=== PATIENT | female | born 1940 | race Caucasian/White ===

== ENCOUNTER → 2016-12-16 | Day surgery (SDC) | payer OTHER ==
[~2016-12-16] MED LIST: ACETAMINOPHEN/HYDROcodone 325 MG/5 MG TAB ONE; AMLO10TA2 PO; ASPI1TAB69 PO; ATOR1TAB18 PO; BUPIVACAINE/EPINEPHRINE 0.5% 50 ML VIAL ONE; GABA100C4 PO; IOHEXOL 180 MG/ML 20 ML VIAL (for RAD DIAG) OTHER ONE; KETOROLAC TROMETHAMINE 30 MG/ML (IVP) VIAL IV PUSH ONE; LACTATED RINGER'S 1000 ML INJ 1,000 ML ONE; LIDOCAINE 1%/EPINEPHrine 1:100,000 SOLN 20 ML VIAL ONE; METO25TA3 PO; MIDAZOLAM HCL 2 MG/2 ML VIAL ONE; MULTTAB67 PO; PLAV75TA29 PO; PROPOFOL 200 MG/20 ML AMP IV ONE; SERT25TA83 PO; ceFAZolin 2 GM PREMIX 50 ML ONE
--- NOTE | 2016-12-16 14:32 | TN ---
cc: VERÓNICA PERERA M.D. DATE OF SURGERY: 12/16/2016 PREOPERATIVE DIAGNOSIS Compression fracture L4, acute. POSTOPERATIVE DIAGNOSIS Compression fracture L4, acute. PROCEDURE Kyphoplasty of L4 and placement of bone cement spacer. SURGEON Verónica Perera ANESTHESIA TIVA. ESTIMATED BLOOD LOSS Minimal. INDICATION This patient is a 76-year-old female with significant low back pain. The patient has a history of having fallen approximately six weeks ago. She had been under the care of a neurologist for a stroke and had some problems with left side weakness of her body. The patient noticed severe increasing back pain on top of preexisting chronic back pain. She was taking medication for this. She followed with a neurologist. An MRI scan of the lumbar spine was ordered. A recent L4 fracture was noted and I was asked to see the patient in consultation regarding the same. The patient prior to her fall had been using a cane but recently now using a walker because of increasing pain and weakness of her legs. DETAILS OF PROCEDURE The patient was brought to the operating room, given limited sedation and rolled to a prone position. All pressure points were protected. The back was scrubbed with alcohol followed by Hibiclens followed by ChloraPrep and draped sterilely. Antibiotics were given within a one hour time window and a time-out was done. A single balloon approach from the left side was utilized. Local anesthesia was utilized. A small incision was made and an awl placed down through the pedicle and into the vertebral body from the left side. A 20 mm Kyphon balloon was placed centrally and inflated. Overall we had good correction. On the back table methyl methacrylate was mixed and after approximately 11 minutes was injected. We had no extravasation. The cement was allowed to harden. The tubes were removed. Intraoperative x-rays were obtained. The patient's wound was irrigated, anesthetized and closed with 4-0 Vicryl followed by Dermabond. The patient was awakened and taken to the recovery room in satisfactory condition. MD SONIA Skelton/TYLER /1:53 PM /2:21 PM
== END | disposition home or self-care (01) ==
LOC: ESDC 11:41
PROVIDERS: ATTEND Orthopaedic Surgery Orthopaedic Surgery of the Spine
DX: S32.040A Wedge compression fracture of fourth lumbar vertebra, initial encounter for closed fracture (principal); E11.9 Type 2 diabetes mellitus without complications; Z79.01 Long term (current) use of anticoagulants; Z91.81 History of falling
CPT/HCPCS: 01936; 22514; 72100; 82948; J0690; J1885; J2250; J3010; J7120; Q9965

== ENCOUNTER 2017-01-27 15:30 | Observation (INO) | payer OTHER ==
[~2017-01-27] VITALS: Ht 165.1 cm; Wt 96.7 kg
[~2017-01-27 15:30] MED LIST changes: -ACETAMINOPHEN/HYDROcodone 325 MG/5 MG TAB ONE; -BUPIVACAINE/EPINEPHRINE 0.5% 50 ML VIAL ONE; -IOHEXOL 180 MG/ML 20 ML VIAL (for RAD DIAG) OTHER ONE; -KETOROLAC TROMETHAMINE 30 MG/ML (IVP) VIAL IV PUSH ONE; -LACTATED RINGER'S 1000 ML INJ 1,000 ML ONE; -LIDOCAINE 1%/EPINEPHrine 1:100,000 SOLN 20 ML VIAL ONE; -MIDAZOLAM HCL 2 MG/2 ML VIAL ONE; -PROPOFOL 200 MG/20 ML AMP IV ONE; -ceFAZolin 2 GM PREMIX 50 ML ONE
[2017-01-27 15:33] VITALS: BP 196/100; PULSE 77; RESP 20; TEMP 98.9; O2SAT 95
[2017-01-27 16:07] VITALS: BP 173/85; PULSE 74; RESP 18; TEMP 98.9; O2SAT 97
[2017-01-27] MEDS ORDERED: SODIUM CHLORIDE 0.9% FLUSH 10 ML FLUSH IVF PRN (16:15)
--- NOTE | 2017-01-27 16:23 | PD ---
HPI Chief Complaint: Neuro Symptoms/ Deficits Time Seen by Provider: 15:57 Travel History International Travel<30 days: No Contact w/Intl Traveler<30days: No Traveled to known affect area: No History of Present Illness HPI The patient is a 76-year-old female who presents to the emergency department via private vehicle for dysarthria and weakness. The daughter states the patient was normal yesterday, however, when she came home today after work to check on her mother she noted that her mother had a change in speech. The daughter states the patient has mild dysarthria and has difficulty finding words at certain times. The patient does have a previous history of CVA with residual left-sided weakness. The patient denies any focal weakness of the arms or legs that is changed from the past, does note some generalized tiredness with her dysarthria. The patient does take Plavix on a daily basis. The patient denies any headache, chest pain, shortness breath, nausea, vomiting , or abdominal pain. Symptoms are moderate, possibly exacerbated by underlying CVA, and there are no acute alleviating factors. The patient's primary physician is Dr. Leone. [facility] Past Medical History Hx Anticoagulant Therapy: Yes (PLAVIX) Arthritis: Yes (bilateral hands) Asthma: No Autoimmune Disease: No Anxiety: Yes (Has been on medication in the past, but was not currently on any medication) Depression: Yes (PATIENT STATES SHE BATTLED WITH IT FOR A WHILE BUT IS NO LONGER DEPRESSED) Heart Rhythm Problems: No Cancer: No Cardiovascular Problems: Yes (HTN) High Cholesterol: Yes Chemotherapy: No Chest Pain: No Congestive Heart Failure: No COPD: No Cerebrovascular Accident: Yes (2016) Diabetes: Yes Patient Takes Glucophage: Yes Diminished Hearing: No Endocrine: Yes (DM) Gastrointestinal Disorders: Yes (GERD) GERD: Yes Genitourinary: Yes Headaches: Yes (allergies with sinus headaches often) Hepatitis: No Heparin Induced Thrombocytopen: No Hypertension: Yes Immune Disorder: No Implanted Vascular Access Dvce: No Kidney Stones: Yes (HX OF) Musculoskeletal: Yes Neurologic: Yes (Left side stroke in 2010 with mild right sided deficits) Psychiatric: Yes Reproductive: No Respiratory: Yes Migraines: No Radiation Therapy: No Renal Failure: No Seizures: No Sickle Cell Disease: No Sleep Apnea: Yes Thyroid Disease: No Ulcer: Yes (hx stomach ulcers) Tetanus Vaccination: Unknown ?: Not Menopausal: Yes Past Surgical History Abdominal Surgery: No AICD: No Arteriovenous Shunt: No Cardiac Surgery: No Ear Surgery: No Endocrine Surgery: Yes (Diabetes) Eye Surgery: No Genitourinary Surgery: Yes (BLADDER REATTATCHMENT) Gynecologic Surgery: No Insulin Pump: No Joint Replacement: No Neurologic Surgery: Yes (spinal sx L4 for compression fx) Oral Surgery: No Pacemaker: No Thoracic Surgery: No Other Surgery: Yes (BLADDER REATTATCHMENT, LUMP TAKEN OFF OF NECK) Social History Alcohol Use: No Tobacco Use: No Substance Use: No Allergies-Medications (Allergen,Severity, Reaction): Coded Allergies: lisinopril (Unverified Allergy, Severe, 01/27/17) sulfamethoxazole (Unverified Allergy, Severe, 01/27/17) trimethoprim (Unverified Allergy, Severe, 01/27/17) valsartan (Unverified Allergy, Severe, 01/27/17) Reported Meds & Prescriptions Reported Meds & Active Scripts Active Reported Meclizine (Meclizine HCl) 25 Mg Tab 25 Mg PO DIRECTED PRN Hydrocodone-Acetaminophen 7.5-325 mg Tab 1 Tab PO Q4H PRN Aspirin 81 Mg Chew 81 Mg CHEW HS Ropinirole 0.25 Mg Tab 0.25 Mg PO HS Gabapentin 300 Mg Cap 300 Mg PO BID Ditropan (Oxybutynin Chloride) 5 Mg Tab 5 Mg PO Q12HR Metformin (Metformin HCl) 500 Mg Tab 500 Mg PO BIDPC With meals Cetirizine (Cetirizine HCl) 10 Mg Tab 10 Mg PO DAILY Laxative (Sennosides) 25 Mg Tab 25 Mg PO HS Omeprazole 20 Mg Tab 20 Mg PO DAILY Atorvastatin (Atorvastatin Calcium) 80 Mg Tab 80 Mg PO HS Plavix (Clopidogrel Bisulfate) 75 Mg Tab 75 Mg PO DAILY Metoprolol Tartrate 25 Mg Tab 12.5 Mg PO BID Multiple Vitamin 1 Tab 1 Tab PO DAILY Sertraline (Sertraline HCl) 25 Mg Tab 25 Mg PO DAILY Review of Systems Except as stated in HPI: all other systems reviewed are Neg HENT: No: Lightheadedness Cardiovascular: No: Chest Pain or Discomfort Respiratory: No: Shortness of Breath Gastrointestinal: No: Nausea, Vomiting, Abdominal Pain Neurologic: Positive: Weakness, Slurred Speech, No: Headache, Change in Mentation, Paresthesia, Sensory Disturbance Physical Exam Narrative GENERAL: Awake, alert, pleasant 76-year-old female who appears her stated age and is in no acute respiratory distress. SKIN: Focused skin assessment warm/dry. HEAD: Atraumatic. Normocephalic. EYES: Pupils equal and round. No scleral icterus. No injection or drainage. ENT: No nasal bleeding or discharge. Mucous membranes pink and moist. NECK: Trachea midline. No JVD. CARDIOVASCULAR: Regular rate and rhythm. No murmur appreciated. RESPIRATORY: No accessory muscle use. Clear to auscultation. Breath sounds equal bilaterally. GASTROINTESTINAL: Abdomen soft, non-tender, nondistended. MUSCULOSKELETAL: No obvious deformities. No clubbing. No cyanosis. No edema. NEUROLOGICAL: Awake and alert. No obvious cranial nerve deficits. No drift of the arms or legs. Mild weakness of the left upper extremity with extension of the elbow and flexion of the elbow when compared to the right. Plantar flexion is 4+ on the left and 5+5 on the right. Sensation is intact and symmetric on the face, arms, and legs. Finger to nose is normal. [id number] is normal. Mild dysarthria, however, speech is understandable. PSYCHIATRIC: Appropriate mood and affect; insight and judgment normal. Data Data Last Documented VS Vital Signs Date Time Temp Pulse Resp B/P (MAP) Pulse Ox O2 Delivery O2 Flow Rate FiO2 01/27/17 16:07 98.9 74 18 173/85 (114) 97 Room Air Orders Orders Electrocardiogram (01/27/17 16:04) Prothrombin Time / Inr (Pt) (01/27/17 16:04) Act Partial Throm Time (Ptt) (01/27/17 16:04) Complete Blood Count With Diff (01/27/17 16:04) Comprehensive Metabolic Panel (01/27/17 16:04) Creatine Kinase (Cpk) (01/27/17 16:04) Troponin I (01/27/17 16:04) Ct Brain W/O Iv Contrast(Rout) (01/27/17 16:04) Ecg Monitoring (01/27/17 16:04) Iv Access Insert/Monitor (01/27/17 16:04) Oximetry (01/27/17 16:04) Sodium Chloride 0.9% Flush (Ns Flush) (01/27/17 16:15) Aspirin (Aspirin) (01/27/17 18:15) Admit Order (Ed Use Only) (01/27/17 18:15) Labs Laboratory Tests Test 01/27/17 16:15 White Blood Count 6.4 TH/MM3 Red Blood Count 3.92 MIL/MM3 Hemoglobin 12.7 GM/DL Hematocrit 38.0 % Mean Corpuscular Volume 96.7 FL Mean Corpuscular Hemoglobin 32.4 PG Mean Corpuscular Hemoglobin Concent 33.5 % Red Cell Distribution Width 13.3 % Platelet Count 265 TH/MM3 Mean Platelet Volume 8.4 FL Neutrophils (%) (Auto) 64.1 % Lymphocytes (%) (Auto) 17.4 % Monocytes (%) (Auto) 8.4 % Eosinophils (%) (Auto) 8.8 % Basophils (%) (Auto) 1.3 % Neutrophils # (Auto) 4.1 TH/MM3 Lymphocytes # (Auto) 1.1 TH/MM3 Monocytes # (Auto) 0.5 TH/MM3 Eosinophils # (Auto) 0.6 TH/MM3 Basophils # (Auto) 0.1 TH/MM3 CBC Comment DIFF FINAL Differential Comment Prothrombin Time 10.3 SEC Prothromb Time International Ratio 0.9 RATIO Activated Partial Thromboplast Time 23.6 SEC Blood Urea Nitrogen 23 MG/DL Creatinine 0.98 MG/DL Random Glucose 118 MG/DL Total Protein 7.1 GM/DL Albumin 3.5 GM/DL Calcium Level 9.1 MG/DL Alkaline Phosphatase 90 U/L Aspartate Amino Transf (AST/SGOT) 25 U/L Alanine Aminotransferase (ALT/SGPT) 23 U/L Total Bilirubin 0.5 MG/DL Sodium Level 136 MEQ/L Potassium Level 4.0 MEQ/L Chloride Level 103 MEQ/L Carbon Dioxide Level 24.4 MEQ/L Anion Gap 9 MEQ/L Estimat Glomerular Filtration Rate 55 ML/MIN Total Creatine Kinase 128 U/L Troponin I LESS THAN 0.02 NG/ML MDM Medical Decision Making Medical Screen Exam Complete: Yes Emergency Medical Condition: Yes Medical Record Reviewed: Yes Interpretation(s) EKG reveals normal sinus rhythm with a rate of 69. Left anterior fascicular block. Left axis deviation. Laboratory Tests Test 01/27/17 16:15 White Blood Count 6.4 TH/MM3 Red Blood Count 3.92 MIL/MM3 Hemoglobin 12.7 GM/DL Hematocrit 38.0 % Mean Corpuscular Volume 96.7 FL Mean Corpuscular Hemoglobin 32.4 PG Mean Corpuscular Hemoglobin Concent 33.5 % Red Cell Distribution Width 13.3 % Platelet Count 265 TH/MM3 Mean Platelet Volume 8.4 FL Neutrophils (%) (Auto) 64.1 % Lymphocytes (%) (Auto) 17.4 % Monocytes (%) (Auto) 8.4 % Eosinophils (%) (Auto) 8.8 % Basophils (%) (Auto) 1.3 % Neutrophils # (Auto) 4.1 TH/MM3 Lymphocytes # (Auto) 1.1 TH/MM3 Monocytes # (Auto) 0.5 TH/MM3 Eosinophils # (Auto) 0.6 TH/MM3 Basophils # (Auto) 0.1 TH/MM3 CBC Comment DIFF FINAL Differential Comment Prothrombin Time 10.3 SEC Prothromb Time International Ratio 0.9 RATIO Activated Partial Thromboplast Time 23.6 SEC Blood Urea Nitrogen 23 MG/DL Creatinine 0.98 MG/DL Random Glucose 118 MG/DL Total Protein 7.1 GM/DL Albumin 3.5 GM/DL Calcium Level 9.1 MG/DL Alkaline Phosphatase 90 U/L Aspartate Amino Transf (AST/SGOT) 25 U/L Alanine Aminotransferase (ALT/SGPT) 23 U/L Total Bilirubin 0.5 MG/DL Sodium Level 136 MEQ/L Potassium Level 4.0 MEQ/L Chloride Level 103 MEQ/L Carbon Dioxide Level 24.4 MEQ/L Anion Gap 9 MEQ/L Estimat Glomerular Filtration Rate 55 ML/MIN Total Creatine Kinase 128 U/L Troponin I LESS THAN 0.02 NG/ML CT reveals old infarcts, no acute hemorrhage. Differential Diagnosis Differential diagnosis includes CVA, TIA, intracranial hemorrhage, UTI, delirium , hypoglycemia, hyponatremia. Narrative Course IV was established, labs are drawn and sent, and the patient was placed on cardiac telemetry monitoring and continuous pulse oximetry monitoring. EKG was ordered and interpreted. Stat CT of the brain was obtained. Labs are unremarkable. CT of the brain was unremarkable except for old infarcts, no acute hemorrhage. Therefore, the patient was administered aspirin 325 mg orally. Patient does have a previous history of CVA, last one was approximately 1718 months ago, August 2015 according to the daughter. The patient has new onset dysarthria, unsure if this is secondary to acute CVA/TIA. Therefore, patient will be 23 hour observation. The patient was reassessed at 6:15 PM, her speech had significantly improved. It appears the patient had a TIA or transient neurologic deficit which has improved. It has been over 1-1/2 years since the patient had an ultrasound of the carotids and echocardiogram, she may benefit from carotid ultrasound and echocardiogram. The patient was administered an aspirin orally. Patient has [employer], therefore, [facility] were paged for 23 hour observation. Physician Communication Physician Communication The patient has [employer], therefore, [facility] were paged for 23 hour observation. I discussion with Dr. Suarez who agrees with 23 hour observation. Diagnosis Primary Impression: Dysarthria Additional Impression: TIA (transient ischemic attack) Qualified Codes: G45.9 - Transient cerebral ischemic attack, unspecified Admitting Information Admitting Physician Requests: Observation Condition: Stable Sherif Arce MD Jan 27, 2017 16:23
[2017-01-27] MEDS ORDERED: OXYB5TAB10 PO (17:01)
[2017-01-27] MEDS ORDERED: GABA300C5 PO (17:01)
[2017-01-27] MEDS ORDERED: OMEP20TA PO (17:01)
[2017-01-27] MEDS ORDERED: MECL-62 PO (17:01)
[2017-01-27] MEDS ORDERED: METF500T PO (17:01)
[2017-01-27] MEDS ORDERED: HYDR-3580 PO (17:01)
[2017-01-27] MEDS ORDERED: ASPI81CH CHEW (17:01)
[2017-01-27] MEDS ORDERED: [UNRECOGNIZED DRUG - CODE] PO (17:01)
[2017-01-27] MEDS ORDERED: ROPI0.25 PO (17:01)
[2017-01-27] MEDS ORDERED: CETI10 PO (17:01)
[2017-01-27 17:03] LABS: AUTOMATED NEUTROPHIL # 4.1 TH/MM3 (1.8-7.7); BASOPHIL # 0.1 TH/MM3 (0-0.2); BASOPHIL % 1.3 % (0.0-2.0); EOSINOPHIL # 0.6 TH/MM3 (0-0.4); EOSINOPHIL % 8.8 % (0.0-4.0); HEMO FLAGS DIFF FINAL; LYMPH % 17.4 % (9.0-44.0); LYMPHOCYTE # 1.1 TH/MM3 (1.0-4.8); MEAN CELL VOLUME 96.7 FL (80.0-100.0); MEAN CORPUSCULAR HEMOGLOBIN 32.4 PG (27.0-34.0); MEAN CORPUSCULAR HGB CONC 33.5 % (32.0-36.0); MONO % 8.4 % (0.0-8.0); NEUT % 64.1 % (16.0-70.0); PLATELET COUNT 265 TH/MM3 (150-450); RED BLOOD COUNT 3.92 MIL/MM3 (4.00-5.30); RED CELL DISTRIBUTION WIDTH 13.3 % (11.6-17.2); WHITE BLOOD COUNT 6.4 TH/MM3 (4.0-11.0)
[2017-01-27 17:22] LABS: ALT (GPT) 23 U/L (10-53)
[2017-01-27 17:24] LABS: APTT (PATIENT) 23.6 SEC (24.3-30.1); INTERNATIONAL NORMALIZED RATIO 0.9 RATIO; PROTHROMBIN TIME - PATIENT 10.3 SEC (9.8-11.6)
[2017-01-27 17:28] LABS: ALKALINE PHOSPHATASE 90 U/L (45-117); ANION GAP 9 MEQ/L (5-15); AST (GOT) 25 U/L (15-37); BICARBONATE 24.4 MEQ/L (21.0-32.0); BLOOD UREA NITROGEN 23 MG/DL (7-18); CHLORIDE 103 MEQ/L (98-107); CREATINE KINASE 128 U/L (26-192); GLOMERULAR FILTRATION RATE 55 ML/MIN (>89); SODIUM (NA) 136 MEQ/L (136-145); TOTAL BILIRUBIN ADULT 0.5 MG/DL (0.2-1.0)
--- NOTE | 2017-01-27 18:07 | RADRPT ---
EXAM DATE/TIME: 01/27/2017 17:25 [facility] COMPARISON: MRI BRAIN W/O CONTRAST, December 06, 2015, 21:45. CT BRAIN W/O CONTRAST, December 06, 2015, 21:02. INDICATIONS : Slurred speech, difficulty ambulating. RADIATION DOSE: 56.81 CTDIvol (mGy) MEDICAL HISTORY : Cerebrovascular disease. Hypertension. Diabetes mellitus type 1. SURGICAL HISTORY : None. ENCOUNTER: Initial ACUITY: 1 day PAIN SCALE: 0/10 LOCATION: cranial TECHNIQUE: Multiple contiguous axial images were obtained of the head. Using automated exposure control and adj ustment of the mA and/or kV according to patient size, radiation dose was kept as low as reasonably a chievable to obtain optimal diagnostic quality images. DICOM format image data is available electro nically for review and comparison. FINDINGS: CEREBRUM: The ventricles are normal for age. No evidence of midline shift, mass lesion, hemorrhage or acute in farction. No extra-axial fluid collections are seen. Old ischemic changes are again seen in the high right frontal and parietal lobes and also the periventricular white matter. There is an old lacunar infarct of the left thalamus, stable. POSTERIOR FOSSA: The cerebellum and brainstem are intact. The 4th ventricle is midline. The cerebellopontine angle i s unremarkable. EXTRACRANIAL: The visualized portion of the orbits is intact. SKULL: The calvaria is intact. No evidence of skull fracture. CONCLUSION: No acute intracranial abnormality. Chronic/old infarcts as above. Abel Robb MD on January 27, 2017 at 18:04 Board Certified Radiologist. This report was verified electronically.
[2017-01-27] MEDS ORDERED: ASPIRIN 325 MG TAB PO ONE (18:15)
[2017-01-27] MEDS ORDERED: NALOXONE HCL 0.4 MG/ML AMP IV PUSH PRN (18:30)
[2017-01-27] MEDS ORDERED: SODIUM CHLORIDE 0.9% FLUSH 10 ML FLUSH IV FLUSH PRN (18:30)
[2017-01-27] MEDS ORDERED: ONDANSETRON HCL 4 MG/2 ML VIAL IVP PRN (18:30)
--- NOTE | 2017-01-27 18:34 | HHI.HP ---
[facility] Service [facility] Primary Care Physician Kamla Leone MD Admission Diagnosis acute dysarthria, history CVA Diagnoses: (1) Dysarthria Diagnosis: Principal (2) TIA (transient ischemic attack) Diagnosis: Principal Travel History International Travel<30 Days: No Contact w/Intl Traveler <30 Da: No Traveled to Known Affected Are: No History of Present Illness Mrs. Whitlock is a 76-year-old female. She is here secondary to dysarthria. Her daughter found her to have dysarthria this morning upon visiting her. She was brought to the hospital. She has since had resolution of her dysarthria. The patient says she feels 100% back to normal regarding her speech. At baseline she has diabetes mellitus type 2 and has a past history of TIAs and CVAs. She is feeling at baseline when seen. She has no headache but does complain that she didn't having headaches intermittently for the past week. No other complaints. Review of Systems Constitutional: DENIES: Fatigue, Fever, Chills, Dizziness, Change in appetite Endocrine: DENIES: Heat/cold intolerance Eyes: DENIES: Blurred vision, Diplopia, Eye inflammation, Eye pain Ears, nose, mouth, throat: DENIES: Tinnitus, Hearing loss, Vertigo Respiratory: DENIES: Apneas, Cough, Wheezing, Hemoptysis, Shortness of breath Cardiovascular: DENIES: Chest pain, Palpitations, Syncope Gastrointestinal: DENIES: Abdominal pain, Black stools, Bloody stools Musculoskeletal: DENIES: Joint pain, Muscle aches, Stiffness Integumentary: DENIES: Abnormal pigmentation, Pruritus, Rash, Nail changes Hematologic/lymphatic: DENIES: Bruising, Lymphadenopathy Immunologic/allergic: DENIES: Eczema, Urticaria Neurologic: COMPLAINS OF: Speech Problems, DENIES: Abnormal gait, Headache, Localized weakness, Paresthesias Psychiatric: DENIES: Anxiety, Confusion, Mood changes, Depression, Hallucinations Past Family Social History Past Medical History Hypertension History of TIAs History of CVA 3 Hyperlipidemia Gastroesophageal reflux disease Depression Diabetes mellitus type 2 Diabetic retinopathy Peripheral neuropathy from diabetes Past Surgical History Latter suspension surgery Neck mass excision Reported Medications Reported Meds & Active Scripts Active Reported Meclizine (Meclizine HCl) 25 Mg Tab 25 Mg PO DIRECTED PRN Hydrocodone-Acetaminophen 7.5-325 mg Tab 1 Tab PO Q4H PRN Aspirin 81 Mg Chew 81 Mg CHEW HS Ropinirole 0.25 Mg Tab 0.25 Mg PO HS Gabapentin 300 Mg Cap 300 Mg PO BID Ditropan (Oxybutynin Chloride) 5 Mg Tab 5 Mg PO Q12HR Metformin (Metformin HCl) 500 Mg Tab 500 Mg PO BIDPC With meals Cetirizine (Cetirizine HCl) 10 Mg Tab 10 Mg PO DAILY Laxative (Sennosides) 25 Mg Tab 25 Mg PO HS Omeprazole 20 Mg Tab 20 Mg PO DAILY Atorvastatin (Atorvastatin Calcium) 80 Mg Tab 80 Mg PO HS Plavix (Clopidogrel Bisulfate) 75 Mg Tab 75 Mg PO DAILY Metoprolol Tartrate 25 Mg Tab 12.5 Mg PO BID Multiple Vitamin 1 Tab 1 Tab PO DAILY Sertraline (Sertraline HCl) 25 Mg Tab 25 Mg PO DAILY Allergies: Coded Allergies: lisinopril (Unverified Allergy, Severe, 01/27/17) sulfamethoxazole (Unverified Allergy, Severe, 01/27/17) trimethoprim (Unverified Allergy, Severe, 01/27/17) valsartan (Unverified Allergy, Severe, 01/27/17) Family History Diabetes mellitus type II and glaucoma in mother Social History No history of smoking No history of alcohol abuse No history of illicit drug abuse Physical Exam Vital Signs Vital Signs Date Time Temp Pulse Resp B/P (MAP) Pulse Ox O2 Delivery O2 Flow Rate FiO2 01/27/17 16:07 98.9 74 18 173/85 (114) 97 Room Air 01/27/17 16:07 74 18 97 Room Air 01/27/17 16:07 98.9 74 18 173/85 (114) 97 Room Air 01/27/17 15:33 98.9 77 20 196/100 (132) 95 Physical Exam GENERAL: NAD, A&Ox3 HEAD: Normocephalic. NECK: Supple, trachea midline. No lymphadenopathy. EYES: No scleral icterus. No injection or drainage. CARDIOVASCULAR: Regular rate and rhythm without murmurs, gallops, or rubs. RESPIRATORY: Breath sounds equal bilaterally. No accessory muscle use. GASTROINTESTINAL: Abdomen soft, non-tender, nondistended. MUSCULOSKELETAL: No cyanosis, or edema. SKIN: Warm and dry. NEURO: No focal neurological deficitis. Laboratory Laboratory Tests Test 01/27/17 16:15 White Blood Count 6.4 Red Blood Count 3.92 Hemoglobin 12.7 Hematocrit 38.0 Mean Corpuscular Volume 96.7 Mean Corpuscular Hemoglobin 32.4 Mean Corpuscular Hemoglobin Concent 33.5 Red Cell Distribution Width 13.3 Platelet Count 265 Mean Platelet Volume 8.4 Neutrophils (%) (Auto) 64.1 Lymphocytes (%) (Auto) 17.4 Monocytes (%) (Auto) 8.4 Eosinophils (%) (Auto) 8.8 Basophils (%) (Auto) 1.3 Neutrophils # (Auto) 4.1 Lymphocytes # (Auto) 1.1 Monocytes # (Auto) 0.5 Eosinophils # (Auto) 0.6 Basophils # (Auto) 0.1 CBC Comment DIFF FINAL Differential Comment Prothrombin Time 10.3 Prothromb Time International Ratio 0.9 Activated Partial Thromboplast Time 23.6 Blood Urea Nitrogen 23 Creatinine 0.98 Random Glucose 118 Total Protein 7.1 Albumin 3.5 Calcium Level 9.1 Alkaline Phosphatase 90 Aspartate Amino Transf (AST/SGOT) 25 Alanine Aminotransferase (ALT/SGPT) 23 Total Bilirubin 0.5 Sodium Level 136 Potassium Level 4.0 Chloride Level 103 Carbon Dioxide Level 24.4 Anion Gap 9 Estimat Glomerular Filtration Rate 55 Total Creatine Kinase 128 Troponin I LESS THAN 0.02 Result Diagram: 01/27/17 1615 01/27/17 1615 Caprini VTE Risk Assessment Caprini VTE Risk Assessment: Mod/High Risk (score >= 2) VTE Pharm Contraindication: High risk for bleeding Caprini Risk Assessment Model Point Value = 1 Point Value = 2 Point Value = 3 Point Value = 5 Age 41-60 Minor surgery BMI > 25 kg/m2 Swollen legs Varicose veins or History of unexplained or recurrent spontaneous Oral contraceptives or hormone replacement Sepsis (< 1 month) Serious lung disease, including pneumonia (< 1 month) Abnormal pulmonary function Acute myocardial infarction Congestive heart failure (< 1 month) History of inflammatory bowel disease Medical patient at bed rest Age 61-74 Arthroscopic surgery Major open surgery (> 45 min) Laparoscopic surgery (> 45 min) Malignancy Confined to bed (> 72 hours) Immobilizing plaster cast Central venous access Age >= 75 History of VTE Family history of VTE Factor V Leiden Prothrombin [id number] Lupus anticoagulant Anticardiolipin antibodies Elevated serum homocysteine Heparin-induced thrombocytopenia Other congenital or acquired thrombophilia Stroke (< 1 month) Elective arthroplasty Hip, pelvis, or leg fracture Acute spinal cord injury (< 1 month) Prophylaxis Regimen Total Risk Factor Score Risk Level Prophylaxis Regimen 0-1 Low Early ambulation 2 Moderate Order ONE of the following: *Sequential Compression Device (SCD) *Heparin 5000 units SQ BID 3-4 Higher Order ONE of the following medications: *Heparin 5000 units SQ TID *Enoxaparin/Lovenox 40 mg SQ daily (WT < 150 kg, CrCl > 30 mL/min) *Enoxaparin/Lovenox 30 mg SQ daily (WT < 150 kg, CrCl > 10-29 mL/min) *Enoxaparin/Lovenox 30 mg SQ BID (WT < 150 kg, CrCl > 30 mL/min) AND/OR *Sequential Compression Device (SCD) 5 or more Highest Order ONE of the following medications: *Heparin 5000 units SQ TID (Preferred with Epidurals) *Enoxaparin/Lovenox 40 mg SQ daily (WT < 150 kg, CrCl > 30 mL/min) *Enoxaparin/Lovenox 30 mg SQ daily (WT < 150 kg, CrCl > 10-29 mL/min) *Enoxaparin/Lovenox 30 mg SQ BID (WT < 150 kg, CrCl > 30 mL/min) AND *Sequential Compression Device (SCD) Assessment and Plan Problem List: (1) TIA (transient ischemic attack) ICD Code: G45.9 - Transient cerebral ischemic attack, unspecified Status: Acute (2) Dysarthria ICD Code: R47.1 - Dysarthria and anarthria Status: Acute Assessment and Plan Assessment and plan 76-year-old female who is admitted secondary to dysarthria, possible TIA versus CVA. Dysarthria History of CVA Is true TIA TIA versus CVA Tendons are now resolved Daily aspirin next line statin Neuro checks Carotid ultrasound study of the neck MRI of brain Monitor for any recurrence of symptoms Hypertension Allow for blood pressure elevations L stroke rule out Follow blood pressures Continue Baseline blood pressure treatments Hyperlipidemia Continue statin Follow fasting lipid profiles in outpatient Gastroesophageal reflux disease No change to baseline treatment Depression No change to baseline treatment Diabetes mellitus type 2 Diabetic retinopathy Peripheral neuropathy from diabetes Follow blood sugars Insulin sliding scale Diabetic diet DVT prophylaxis SCDs Problem Qualifiers (1) TIA (transient ischemic attack): Qualified Codes: G45.9 - Transient cerebral ischemic attack, unspecified Philipp Suarez MD Jan 27, 2017 18:34
[2017-01-27 18:47] VITALS: BP 170/85
[2017-01-27] MEDS ORDERED: PILL SPLITTER OTHER PRN (19:00)
[2017-01-27] MEDS ORDERED: DEXTROSE 50% IN WATER 50 ML VIAL(D50) IV PRN (19:30)
[2017-01-27] MEDS ORDERED: GLUCAGON 1 MG/ML VIAL OTHER PRN (19:30)
[2017-01-27 20:00] VITALS: BP 135/76; PULSE 77; RESP 18; TEMP 98.1; O2SAT 98
[2017-01-27] MEDS: OXYBUTYNIN CHLORIDE 5 MG TAB PO SCH (20:51)
[2017-01-27] MEDS: ASPIRIN 81 MG CHEW TAB CHEW SCH (20:52)
[2017-01-27] MEDS: SENNOSIDES 8.6 MG TAB PO SCH (20:52)
[2017-01-27] MEDS: GABAPENTIN 300 MG CAP PO SCH (20:52)
[2017-01-27] MEDS: ATORVASTATIN 80 MG TAB PO SCH (20:52)
[2017-01-27] MEDS: METOPROLOL TARTRATE 25 MG TAB PO SCH (20:53)
--- NOTE | 2017-01-27 20:55 | EKG ---
Date Performed: 01/27/2017 Time Performed: 16:24:09 PTAGE: 76 years EKG: Sinus rhythm LEFT ANTERIOR FASCICULAR BLOCK ABNORMAL ECG No significant change from prior electrocardiogram. PREVIOUS TRACING : 12/06/2015 21.18 DOCTOR: Bebeto Patel Interpretating Date/Time 01/27/2017 20:54:27
[2017-01-27] MEDS: ACETAMINOPHEN/HYDROcodone 325 MG/7.5 MG TAB PO PRN (20:56)
[2017-01-27] MEDS: SODIUM CHLORIDE 0.9% FLUSH 10 ML FLUSH IV FLUSH SCH (21:00)
--- NOTE | 2017-01-27 21:42 | RADRPT ---
EXAM DATE/TIME: 01/27/2017 21:13 [facility] COMPARISON: CT BRAIN W/O CONTRAST, January 27, 2017, 17:25. MRI BRAIN W/O CONTRAST, September 07, 2015, 10:04. INDICATIONS : TIA. Slurred speech, difficulty ambulating. MEDICAL HISTORY : Cerebrovascular disease. Diabetes mellitus type 2. Hypertension. SURGICAL HISTORY : Bladder. Laminectomy. ENCOUNTER: Subsequent ACUITY: 1 day PAIN SCORE: 3/10 LOCATION: cranial TECHNIQUE: Multiplanar, multisequence MRI of the brain was performed without contrast. FINDINGS: CEREBRUM: The ventricles are normal for age. No evidence of midline shift, mass lesion, hemorrhage or acute in farction. No extraaxial fluid collections are seen. The pituitary gland and suprasellar cistern are normal in configuration. Several old, small cortical/subcortical infarcts are seen in the high right parietal and frontal lobes. There is a 1 cm old lacunar infarct of the left thalamus. WHITE MATTER: No significant signal abnormalities are seen in the white matter. POSTERIOR FOSSA: The cerebellum and brainstem are intact. The 4th ventricle is midline. The cerebellopontine angle is unremarkable. The cerebellar tonsils are normal in position. DIFFUSION IMAGING: No focal areas of restricted diffusion are seen. No evidence of acute infarction. EXTRACRANIAL: The visualized portions of the orbits and paranasal sinuses are unremarkable. CONCLUSION: 1. No acute infarct or other acute intracranial abnormality. 2. Chronic cerebral infarct right high parietal and frontal lobes. 3. Old lacunar infarct of the left thalamus. Abel Robb MD on January 27, 2017 at 21:38 Board Certified Radiologist. This report was verified electronically.
--- NOTE | 2017-01-27 22:55 | RADRPT ---
EXAM DATE/TIME: 01/27/2017 22:07 [facility] COMPARISON: US CAROTID ARTERIES, September 03, 2015, 20:02. INDICATIONS : Syncope. MEDICAL HISTORY : Hypercholesterolemia. Gastroesophageal reflux disease. Hypertension. CVA. Syncope. Ulcer. Hiatal [place]. Kidney stones. Diabetes. Neuropathy. SURGICAL HISTORY : Bladder reattachment surgery. ENCOUNTER: Subsequent ACUITY: 1 day PAIN SCORE: 0/10 LOCATION: Bilateral neck PEAK SYSTOLIC VELOCITIES (cm/sec): ICA/CCA RATIO: Right: 0.8 Left: 1.0 ICA: Right: 56.8 Left: 62.0 CCA: Right: 70.9 Left: 59.6 ECA: Right: 62.0 Left: 63.3 VERTEBRAL: Right: 49.0 antegrade Left: 24.8 antegrade Elevated flow velocities and ICA/CCA ratios have been found to correlate with increased degrees of vessel stenosis, calculated as percentage of diameter relative to a normal segment of distal ICA/CCA FINDINGS: RIGHT CAROTID: Trace plaque of the bulb and proximal ICA. LEFT CAROTID: Trace plaque of the bulb and proximal ICA. VERTEBRAL ARTERIES: Antegrade flow is seen in both vertebral arteries. MISCELLANEOUS: None. CONCLUSION: Minimal atherosclerotic plaque of both carotid bifurcations. No hemodynamically significant narrowing . Abel Robb MD on January 27, 2017 at 22:53 Board Certified Radiologist. This report was verified electronically.
[2017-01-27] MEDS: INSULIN ASPART SUPPLEMENTAL SCALE SQ SCH (23:40)
[2017-01-28] VITALS (8 sets, daily range): BP systolic 132–200; BP diastolic 79–94; PULSE 61–70; RESP 18–20; TEMP 97.5–98.2; O2SAT 94–98
[2017-01-28] MEDS: ACETAMINOPHEN/HYDROcodone 325 MG/7.5 MG TAB PO PRN ×6 (01:16→21:49)
[2017-01-28] MEDS: INSULIN ASPART SUPPLEMENTAL SCALE SQ SCH ×4 (08:00→21:59)
[2017-01-28] MEDS: metFORMIN HCL 500 MG TAB PO SCH ×2 (09:00→17:20)
[2017-01-28] MEDS: SODIUM CHLORIDE 0.9% FLUSH 10 ML FLUSH IV FLUSH SCH ×2 (09:00→21:56)
[2017-01-28] MEDS: cloNIDine HCL 0.1 MG TAB PO PRN (09:00)
[2017-01-28] MEDS: CETIRIZINE HCL 10 MG TAB PO SCH (09:01)
[2017-01-28] MEDS: MULTIVITAMIN TAB PO SCH (09:01)
[2017-01-28] MEDS: SERTRALINE HCL 50 MG TAB PO SCH (09:01)
[2017-01-28] MEDS: GABAPENTIN 300 MG CAP PO SCH ×2 (09:01→21:47)
[2017-01-28] MEDS: METOPROLOL TARTRATE 25 MG TAB PO SCH ×2 (09:01→21:47)
[2017-01-28] MEDS: CLOPIDOGREL 75 MG TAB PO SCH (09:01)
[2017-01-28] MEDS: OXYBUTYNIN CHLORIDE 5 MG TAB PO SCH ×2 (09:01→21:48)
[2017-01-28] MEDS: PANTOPRAZOLE SOD 20 MG DELAYED RELEASE TAB PO SCH (09:01)
[2017-01-28] MEDS ORDERED: METOPROLOL TARTRATE 25 MG TAB PO ONE (09:15)
[2017-01-28] MEDS: MORPHINE SULFATE 4 MG/ML INJ IV PUSH PRN ×2 (10:55→17:20)
[2017-01-28] MEDS ORDERED: NAPROXEN 500 MG TAB PO ONE (11:00)
[2017-01-28 11:30] LABS: AUTOMATED NEUTROPHIL # 3.8 TH/MM3 (1.8-7.7); BASOPHIL # 0.1 TH/MM3 (0-0.2); BASOPHIL % 0.9 % (0.0-2.0); EOSINOPHIL # 0.5 TH/MM3 (0-0.4); EOSINOPHIL % 8.5 % (0.0-4.0); HEMATOCRIT 39.3 % (35.0-46.0); HEMO FLAGS DIFF FINAL; LYMPH % 18.5 % (9.0-44.0); LYMPHOCYTE # 1.1 TH/MM3 (1.0-4.8); MEAN CELL VOLUME 97.9 FL (80.0-100.0); MEAN CORPUSCULAR HEMOGLOBIN 32.5 PG (27.0-34.0); MEAN CORPUSCULAR HGB CONC 33.2 % (32.0-36.0); MONO % 8.9 % (0.0-8.0); NEUT % 63.2 % (16.0-70.0); PLATELET COUNT 235 TH/MM3 (150-450); RED BLOOD COUNT 4.01 MIL/MM3 (4.00-5.30); RED CELL DISTRIBUTION WIDTH 13.5 % (11.6-17.2)
[2017-01-28 11:56] LABS: ALT (GPT) 23 U/L (10-53); ANION GAP 8 MEQ/L (5-15); AST (GOT) 19 U/L (15-37); BICARBONATE 26.4 MEQ/L (21.0-32.0); BLOOD UREA NITROGEN 19 MG/DL (7-18); CHLORIDE 105 MEQ/L (98-107); GLOMERULAR FILTRATION RATE 71 ML/MIN (>89); POTASSIUM 3.7 MEQ/L (3.5-5.1); SODIUM (NA) 139 MEQ/L (136-145)
[2017-01-28 11:58] LABS: ALKALINE PHOSPHATASE 86 U/L (45-117); TOTAL BILIRUBIN ADULT 0.6 MG/DL (0.2-1.0)
--- NOTE | 2017-01-28 17:01 | HHI.PR ---
Subjective Remarks No further dysarthria. Workup included MRI of brain, CT of head, and carotid ultrasounds. No findings to suggest CVA. TIA as a possible cause. Alternate causes could be related to her use of narcotics as an outpatient. Today the patient complains of diffuse body pains. She said assessment occurring for several days. She's having difficulty ambulating related to this. Physical therapy assessment is done and recommends PT at home. Discharge offered to patient and right now she feels she's not able to function at home. Anti- inflammatories were discussed. Objective Vital Signs Date Time Temp Pulse Resp B/P (MAP) Pulse Ox O2 Delivery O2 Flow Rate FiO2 01/28/17 16:19 98.1 63 20 132/82 (99) 98 01/28/17 16:00 69 01/28/17 13:00 62 01/28/17 11:49 97.6 66 20 187/79 (115) 96 01/28/17 08:04 97.6 66 20 200/91 (127) 97 01/28/17 08:04 64 01/28/17 04:00 97.9 61 18 165/80 (108) 98 01/28/17 00:00 98.2 70 18 138/94 (109) 95 01/28/17 00:00 98.2 70 18 187/82 (117) 94 01/27/17 20:00 98.1 77 18 135/76 (95) 98 01/27/17 18:47 81 20 170/85 (113) 96 I/O 01/27/17 01/27/17 01/27/17 01/28/17 01/28/17 01/28/17 07:00 15:00 23:00 07:00 15:00 23:00 Intake Total 720 ml Output Total 500 ml Balance -500 ml 720 ml Intake Oral 720 ml Output Urine Total 500 ml # Voids 1 2 4 Result Diagram: 01/28/1792901/28/1730 Objective Remarks GENERAL: NAD, A&Ox3 HEAD: Normocephalic. NECK: Supple, trachea midline. No lymphadenopathy. EYES: No scleral icterus. No injection or drainage. CARDIOVASCULAR: Regular rate and rhythm without murmurs, gallops, or rubs. RESPIRATORY: Breath sounds equal bilaterally. No accessory muscle use. GASTROINTESTINAL: Abdomen soft, non-tender, nondistended. MUSCULOSKELETAL: No cyanosis, or edema. SKIN: Warm and dry. NEURO: No focal neurological deficitis. A/P Problem List: (1) Arthralgia ICD Code: M25.50 - Pain in unspecified joint (2) Dysarthria ICD Code: R47.1 - Dysarthria and anarthria Status: Acute (3) TIA (transient ischemic attack) ICD Code: G45.9 - Transient cerebral ischemic attack, unspecified Status: Acute Assessment and Plan Assessment and plan 76-year-old female who is admitted secondary to dysarthria, possible TIA versus CVA. Complaints of arthralgias today. Naprosyn started as a treatment. Morphine provided as a breakthrough treatment. Continue home use of [place]. Patient will need physical therapy at discharge. Dysarthria History of CVA History of TIA Most likely TIA based on workup Carotid ultrasound negative MRI of brain shows no evidence of acute CVA CT shows no acute abnormalities Continue daily aspirin Arthralgias Continue baseline pain treatments As needed IV morphine for breakthrough pain Start NSAID Continue physical therapy Etiology is most likely viral Viral etiology could be contributory to TIA Hypertension Allow for blood pressure elevations L stroke rule out Follow blood pressures Continue Baseline blood pressure treatments Hyperlipidemia Continue statin Follow fasting lipid profiles in outpatient Gastroesophageal reflux disease No change to baseline treatment Depression No change to baseline treatment Diabetes mellitus type 2 Diabetic retinopathy Peripheral neuropathy from diabetes Follow blood sugars Insulin sliding scale Diabetic diet DVT prophylaxis SCDs Problem Qualifiers (1) TIA (transient ischemic attack): Qualified Codes: G45.9 - Transient cerebral ischemic attack, unspecified Philipp Suarez MD Jan 28, 2017 17:01
[2017-01-28] MEDS: ATORVASTATIN 80 MG TAB PO SCH (21:47)
[2017-01-28] MEDS: ASPIRIN 81 MG CHEW TAB CHEW SCH (21:47)
[2017-01-28] MEDS: NAPROXEN 500 MG TAB PO SCH (21:48)
[2017-01-28] MEDS: SENNOSIDES 8.6 MG TAB PO SCH (21:48)
[2017-01-29] VITALS: BP 148/89; PULSE 64; RESP 20; TEMP 97.4; O2SAT 98
[2017-01-29] MEDS: MORPHINE SULFATE 4 MG/ML INJ IV PUSH PRN ×2 (00:13→07:26)
[2017-01-29] MEDS: ACETAMINOPHEN/HYDROcodone 325 MG/7.5 MG TAB PO PRN ×3 (05:40→12:38)
[2017-01-29] MEDS: cloNIDine HCL 0.1 MG TAB PO PRN (06:29)
[2017-01-29 07:04] VITALS: BP 192/85; PULSE 69; RESP 20; TEMP 97.8; O2SAT 96
[2017-01-29 08:20] VITALS: BP 136/81; PULSE 66; RESP 20; TEMP 97.5; O2SAT 94
[2017-01-29] MEDS: METOPROLOL TARTRATE 25 MG TAB PO SCH (08:58)
[2017-01-29] MEDS: NAPROXEN 500 MG TAB PO SCH (08:58)
[2017-01-29] MEDS: PANTOPRAZOLE SOD 20 MG DELAYED RELEASE TAB PO SCH (08:58)
[2017-01-29] MEDS: MULTIVITAMIN TAB PO SCH (08:58)
[2017-01-29] MEDS: SERTRALINE HCL 50 MG TAB PO SCH (08:58)
[2017-01-29] MEDS: GABAPENTIN 300 MG CAP PO SCH (08:58)
[2017-01-29] MEDS: OXYBUTYNIN CHLORIDE 5 MG TAB PO SCH (08:58)
[2017-01-29] MEDS: metFORMIN HCL 500 MG TAB PO SCH (08:58)
[2017-01-29] MEDS: CETIRIZINE HCL 10 MG TAB PO SCH (08:58)
[2017-01-29] MEDS: CLOPIDOGREL 75 MG TAB PO SCH (08:59)
[2017-01-29] MEDS: SODIUM CHLORIDE 0.9% FLUSH 10 ML FLUSH IV FLUSH SCH (08:59)
[2017-01-29] MEDS: INSULIN ASPART SUPPLEMENTAL SCALE SQ SCH ×3 (09:01→17:00)
[2017-01-29 11:30] VITALS: PULSE 68
[2017-01-29 12:00] VITALS: BP 129/68; PULSE 64; RESP 20; TEMP 97.8; O2SAT 96
[2017-01-29] MEDS ORDERED: NAPR500 PO (15:26)
[2017-01-29] MEDS ORDERED: CLON.1 PO (15:26)
--- NOTE | 2017-01-29 15:29 | HHI.DS ---
Discharge Summary Admission Date Jan 27, 2017 at 18:17 Discharge Date: Jan 29, 2017 Admitting Diagnosis acute dysarthria, history CVA (1) Dysarthria ICD Code: R47.1 - Dysarthria and anarthria Diagnosis: Principal Status: Acute (2) TIA (transient ischemic attack) ICD Code: G45.9 - Transient cerebral ischemic attack, unspecified Diagnosis: Principal Status: Acute Procedures None Brief History - From Admission Mrs. Whitlock is a 76-year-old female. She is here secondary to dysarthria. Her daughter found her to have dysarthria this morning upon visiting her. She was brought to the hospital. She has since had resolution of her dysarthria. The patient says she feels 100% back to normal regarding her speech. At baseline she has diabetes mellitus type 2 and has a past history of TIAs and CVAs. She is feeling at baseline when seen. She has no headache but does complain that she didn't having headaches intermittently for the past week. No other complaints. CBC/BMP: 01/28/17 0930 01/28/17 0930 Significant Findings Laboratory Tests Test 01/27/17 16:15 01/28/17 09:30 Red Blood Count 3.92 MIL/MM3 (4.00-5.30) Monocytes (%) (Auto) 8.4 % (0.0-8.0) 8.9 % (0.0-8.0) Eosinophils (%) (Auto) 8.8 % (0.0-4.0) 8.5 % (0.0-4.0) Eosinophils # (Auto) 0.6 TH/MM3 (0-0.4) 0.5 TH/MM3 (0-0.4) Activated Partial Thromboplast Time 23.6 SEC (24.3-30.1) Blood Urea Nitrogen 23 MG/DL (7-18) 19 MG/DL (7-18) Random Glucose 118 MG/DL (74-106) 182 MG/DL (74-106) Estimat Glomerular Filtration Rate 55 ML/MIN (>89) 71 ML/MIN (>89) Troponin I LESS THAN 0.02 NG/ML Hospital Course Mrs. Whitlock is a 76-year-old female. She was admitted secondary to transient episode of dysarthria. Stroke workup was performed. MRI of brain showed no acute changes. She has a prior history of stroke which did show. Carotid ultrasounds showed no severe disease. The patient also expressed diffuse joint pains and body aches. Etiology may be secondary to virus. Transient hypertension could also be from this inflammatory state. Her TIA may have been related to this. Presently she has no recurrence of neurologic symptoms. NSAIDs have cause benefit. She'll be on NSAIDs temporarily. She is also given an as needed clonidine to deal with any further elevations of blood pressure. Presently through this morning and this afternoon her blood pressures have been controlled. She was weak on PT evaluation and home PT as recommended. Medically stable for discharge to home today. Pt Condition on Discharge: Stable Discharge Disposition: Disch w/ Home Health Serv Discharge Time: <= 30 minutes Discharge Instructions DIET: Follow Instructions for: Heart Healthy Diet Activities you can perform: Regular-No Restrictions Follow up Referrals: PCP Follow-up - 1 Week New Medications: Clonidine (Catapres) 0.1 Mg Tab 0.1 MG PO Q6H PRN for SBP>160, DBP>90, #30 TAB Naproxen (Naprosyn) 500 Mg Tab 500 MG PO Q12HR for Inflammation, #6 TAB Continued Medications: Aspirin (Aspirin) 81 Mg Chew 81 MG CHEW HS, TAB 0 Refills Atorvastatin (Atorvastatin) 80 Mg Tab 80 MG PO HS for Cholesterol Management, #30 TAB 0 Refills Cetirizine (Cetirizine) 10 Mg Tab 10 MG PO DAILY for Allergies, TAB 0 Refills Clopidogrel (Plavix) 75 Mg Tab 75 MG PO DAILY for Blood Clot Prevention, #30 TAB 0 Refills Gabapentin (Gabapentin) 300 Mg Cap 300 MG PO BID, #60 CAP 0 Refills Hydrocodone-Acetaminophen (Hydrocodone-Acetaminophen) 7.5-325 mg Tab 1 TAB PO Q4H PRN for PAIN, TAB 0 Refills Meclizine (Meclizine) 25 Mg Tab 25 MG PO DIRECTED PRN for VERTIGO, TAB 0 Refills Metformin (Metformin) 500 Mg Tab 500 MG PO BIDPC for Blood Sugar Management, #60 TAB 0 Refills With meals Metoprolol Tartrate (Metoprolol Tartrate) 25 Mg Tab 12.5 MG PO BID, #60 TAB 0 Refills Multiple Vitamin (Multiple Vitamin) 1 Tab 1 TAB PO DAILY for Nutritional Supplement, TAB 0 Refills Omeprazole (Omeprazole) 20 Mg Tab 20 MG PO DAILY, #30 TAB 0 Refills Oxybutynin (Ditropan) 5 Mg Tab 5 MG PO Q12HR for Urinary Symptom Managemen, #60 TAB 0 Refills Ropinirole (Ropinirole) 0.25 Mg Tab 0.25 MG PO HS, #30 TAB 0 Refills Sennosides (Laxative) 25 Mg Tab 25 MG PO HS for Prevent Constipation, TAB 0 Refills Sertraline (Sertraline) 25 Mg Tab 25 MG PO DAILY, #30 TAB 0 Refills Philipp Suarez MD Jan 29, 2017 15:29
--- NOTE | 2017-01-29 15:31 | HHI.FF ---
Face to Face Verification Diagnosis: (1) Arthralgia (2) Dysarthria (3) TIA (transient ischemic attack) (4) Impaired mobility and activities of daily living Physical Therapy Order: Evaluate and Treat I have seen patient Zamzam Whitlock on 01/29/17. My clinical findings support the need for the requested home health care services because: Ltd mobility - disease progression Deconditioned w/ increased weakness Med compliance is questionable Limited ability to care for self High risk of falls I certify that my clinical findings support that this patient is homebound because: Unsteady gait/balance Unsafe to leave home unassisted Unable to use public transportation Philipp Suarez MD Jan 29, 2017 15:31
[2017-01-29 16:29] VITALS: BP 107/56; PULSE 58; RESP 20; TEMP 97.9; O2SAT 97
[2017-01-29] MEDS ORDERED: MIDODRINE 5 MG TAB PO ONE (17:00)
[2017-01-30] MEDS ORDERED: MIDODRINE 5 MG TAB PO SCH (07:00)
== END 2017-01-29 17:22 | disposition home health service (06) ==
LOC: NEPC 15:30 → UNDOADMOB 18:17 → NEDA 18:17 → N05A 19:06 → UNDODISOB 01-29 17:22
PROVIDERS: ADMIT Hospitalist; ATTEND Hospitalist
DX: G45.9 Transient cerebral ischemic attack, unspecified (principal); I10 Essential (primary) hypertension; E78.5 Hyperlipidemia, unspecified; F32.9 Major depressive disorder, single episode, unspecified; R94.31 Abnormal electrocardiogram [ECG] [EKG]; K21.9 Gastro-esophageal reflux disease without esophagitis; E11.42 Type 2 diabetes mellitus with diabetic polyneuropathy; Z79.84 Long term (current) use of oral hypoglycemic drugs; Z86.73 Personal history of transient ischemic attack (TIA), and cerebral infarction without residual deficits
CPT/HCPCS: 70450; 70551; 80053; 82550; 82948; 84484; 85025; 85610; 85730; 93005; 93880; 96372; 96374; 96376; 97163; 99285; G0378; G8987; G8988; J1815; J2270

== ENCOUNTER 2017-02-27 10:22 | Emergency (ER) | payer OTHER ==
[~2017-02-27] VITALS: Ht 167.6 cm; Wt 105.0 kg
[~2017-02-27 10:22] MED LIST changes: -AMLO10TA2 PO; -ASPI1TAB69 PO; +ASPI81CH CHEW; +CETI10 PO; +CLON.1 PO; -GABA100C4 PO; +GABA300C5 PO; +HYDR-3580 PO; +MECL-62 PO; +METF500T PO; +NAPR500 PO; +OMEP20TA PO; +OXYB5TAB10 PO; +ROPI0.25 PO; +[UNRECOGNIZED DRUG - CODE] PO
[2017-02-27 10:25] VITALS: BP 138/75; PULSE 70; RESP 14; TEMP 98.4; O2SAT 94
--- NOTE | 2017-02-27 13:00 | PD ---
HPI Chief Complaint: General Weakness Time Seen by Provider: 12:59 Travel History International Travel<30 days: No Contact w/Intl Traveler<30days: No Traveled to known affect area: No History of Present Illness HPI 76-year-old female came to the emergency room with history of a fall today because her legs gave way while she was trying to make her way back bedroom from the bathroom on a walker. Patient says that her legs just felt like it had no strength and she fell. She did not hurt her head or any other injury. She has been having some lower back pain since then. Patient had back surgery 2 months ago for compression fracture. Currently she is awake and answering questions. Says her legs feel weak. Patient has a director of casework at home who witnessed this. Her daughter is here with her. Daughter says that the progressive weakness has been going on for past 3 days. Today she is having trouble ambulating. No history of fever or chills. No history of vomiting or diarrhea. Vital signs are otherwise stable. [facility] Past Medical History Narrative Medical List of her past medical, surgical, social and family history reviewed from the nursing note. Hx Anticoagulant Therapy: Yes Arthritis: Yes (bilateral hands) Asthma: No Autoimmune Disease: No Anxiety: Yes (Has been on medication in the past, but was not currently on any medication) Depression: Yes (PATIENT STATES SHE BATTLED WITH IT FOR A WHILE BUT IS NO LONGER DEPRESSED) Heart Rhythm Problems: No Cancer: No Cardiovascular Problems: Yes (HTN) High Cholesterol: Yes Chemotherapy: No Chest Pain: No Congestive Heart Failure: No COPD: No Cerebrovascular Accident: Yes Diabetes: Yes Diminished Hearing: No Endocrine: Yes (DM) Gastrointestinal Disorders: Yes (GERD) GERD: Yes Genitourinary: Yes Headaches: Yes (allergies with sinus headaches often) Hepatitis: No Heparin Induced Thrombocytopen: No Hypertension: Yes Immune Disorder: No Implanted Vascular Access Dvce: No Kidney Stones: Yes (HX OF) Musculoskeletal: Yes Neurologic: Yes (Left side stroke in 2010 with mild right sided deficits) Psychiatric: Yes Reproductive: No Respiratory: Yes Migraines: No Radiation Therapy: No Renal Failure: No Seizures: No Sickle Cell Disease: No Sleep Apnea: Yes Thyroid Disease: No Ulcer: Yes (hx stomach ulcers) ?: Not Menopausal: Yes Past Surgical History Abdominal Surgery: No AICD: No Arteriovenous Shunt: No Cardiac Surgery: No Ear Surgery: No Endocrine Surgery: Yes (Diabetes) Eye Surgery: No Genitourinary Surgery: Yes (BLADDER REATTATCHMENT) Gynecologic Surgery: No Insulin Pump: No Joint Replacement: No Neurologic Surgery: Yes (spinal sx L4 for compression fx) Oral Surgery: No Pacemaker: No Thoracic Surgery: No Other Surgery: Yes (BLADDER REATTATCHMENT, LUMP TAKEN OFF OF NECK) Social History Alcohol Use: No Tobacco Use: No Substance Use: No Allergies-Medications (Allergen,Severity, Reaction): Coded Allergies: lisinopril (Unverified Allergy, Severe, 01/27/17) sulfamethoxazole (Unverified Allergy, Severe, 01/27/17) trimethoprim (Unverified Allergy, Severe, 01/27/17) valsartan (Unverified Allergy, Severe, 01/27/17) Comments List of her allergies reviewed from the nursing note. Reported Meds & Prescriptions Reported Meds & Active Scripts Active Naprosyn (Naproxen) 500 Mg Tab 500 Mg PO Q12HR Catapres (Clonidine) 0.1 Mg Tab 0.1 Mg PO Q6H PRN Reported Meclizine (Meclizine HCl) 25 Mg Tab 25 Mg PO DIRECTED PRN Hydrocodone-Acetaminophen 7.5-325 mg Tab 1 Tab PO Q4H PRN Aspirin 81 Mg Chew 81 Mg CHEW HS Ropinirole 0.25 Mg Tab 0.25 Mg PO HS Gabapentin 300 Mg Cap 300 Mg PO BID Ditropan (Oxybutynin Chloride) 5 Mg Tab 5 Mg PO Q12HR Metformin (Metformin HCl) 500 Mg Tab 500 Mg PO BIDPC With meals Cetirizine (Cetirizine HCl) 10 Mg Tab 10 Mg PO DAILY Laxative (Sennosides) 25 Mg Tab 25 Mg PO HS Omeprazole 20 Mg Tab 20 Mg PO DAILY Atorvastatin (Atorvastatin Calcium) 80 Mg Tab 80 Mg PO HS Plavix (Clopidogrel Bisulfate) 75 Mg Tab 75 Mg PO DAILY Metoprolol Tartrate 25 Mg Tab 12.5 Mg PO BID Multiple Vitamin 1 Tab 1 Tab PO DAILY Sertraline (Sertraline HCl) 25 Mg Tab 25 Mg PO DAILY Narrative Medication List of her home medications reviewed from the nursing note. Review of Systems Except as stated in HPI: all other systems reviewed are Neg Physical Exam Narrative GENERAL: Awake, alert, obese, no obvious distress SKIN: Focused skin assessment warm/dry. HEAD: Atraumatic. Normocephalic. EYES: Pupils equal and round. No scleral icterus. No injection or drainage. ENT: No nasal bleeding or discharge. Mucous membranes pink and moist. NECK: Trachea midline. No JVD. CARDIOVASCULAR: Regular rate and rhythm. No murmur appreciated. RESPIRATORY: No accessory muscle use. Clear to auscultation. Breath sounds equal bilaterally. GASTROINTESTINAL: Abdomen soft, non-tender, nondistended. Hepatic and splenic margins not palpable. MUSCULOSKELETAL: No obvious deformities. No clubbing. No cyanosis. No edema. Positive SLR bilaterally. Left leg is more swollen than the right. Nontender. Distal neurovascular intact NEUROLOGICAL: Awake and alert. No obvious cranial nerve deficits. Motor grossly within normal limits. Normal speech. PSYCHIATRIC: Appropriate mood and affect; insight and judgment normal. Data Data Last Documented VS Orders Orders Electrocardiogram (02/27/17 13:10) Prothrombin Time / Inr (Pt) (02/27/17 13:10) Complete Blood Count With Diff (02/27/17 13:10) Basic Metabolic Panel (Bmp) (02/27/17 13:10) Creatine Kinase (Cpk) (02/27/17 13:10) Troponin I (02/27/17 13:10) Urinalysis - C+S If Indicated (02/27/17 13:10) Ct Brain W/O Iv Contrast(Rout) (02/27/17 13:10) Chest, Single Ap (02/27/17 13:10) Ecg Monitoring (02/27/17 13:10) Iv Access Insert/Monitor (02/27/17 13:10) Oximetry (02/27/17 13:10) Sodium Chloride 0.9% Flush (Ns Flush) (02/27/17 13:15) Ct Lumb Spine W/O Contrast (02/27/17 ) ^ Straight Catheter (02/27/17 13:10) Us Leg Venous Doppler (02/27/17 ) Ed Discharge Order (02/27/17 15:26) Labs Laboratory Tests Test 02/27/17 13:23 02/27/17 14:35 White Blood Count 6.5 TH/MM3 Red Blood Count 4.04 MIL/MM3 Hemoglobin 13.0 GM/DL Hematocrit 39.5 % Mean Corpuscular Volume 97.8 FL Mean Corpuscular Hemoglobin 32.3 PG Mean Corpuscular Hemoglobin Concent 33.0 % Red Cell Distribution Width 13.9 % Platelet Count 223 TH/MM3 Mean Platelet Volume 8.2 FL Neutrophils (%) (Auto) 64.3 % Lymphocytes (%) (Auto) 18.9 % Monocytes (%) (Auto) 8.1 % Eosinophils (%) (Auto) 7.9 % Basophils (%) (Auto) 0.8 % Neutrophils # (Auto) 4.2 TH/MM3 Lymphocytes # (Auto) 1.2 TH/MM3 Monocytes # (Auto) 0.5 TH/MM3 Eosinophils # (Auto) 0.5 TH/MM3 Basophils # (Auto) 0.1 TH/MM3 CBC Comment DIFF FINAL Differential Comment Prothrombin Time 10.0 SEC Prothromb Time International Ratio 0.9 RATIO Blood Urea Nitrogen 18 MG/DL Creatinine 1.01 MG/DL Random Glucose 131 MG/DL Calcium Level 9.2 MG/DL Sodium Level 139 MEQ/L Potassium Level 3.6 MEQ/L Chloride Level 103 MEQ/L Carbon Dioxide Level 28.6 MEQ/L Anion Gap 7 MEQ/L Estimat Glomerular Filtration Rate 54 ML/MIN Total Creatine Kinase 105 U/L Troponin I 0.02 NG/ML Urine Color YELLOW Urine Turbidity CLEAR Urine pH 6.0 Urine Specific [place] 1.011 Urine Protein 30 mg/dL Urine Glucose (UA) NEG mg/dL Urine Ketones NEG mg/dL Urine Occult Blood NEG Urine Nitrite NEG Urine Bilirubin NEG Urine Urobilinogen LESS THAN 2.0 MG/DL Urine Leukocyte Esterase NEG Urine RBC 1 /hpf Urine WBC 1 /hpf Urine Squamous Epithelial Cells 1 /hpf Urine Hyaline Casts 3 /lpf Urine Mucus FEW /lpf Microscopic Urinalysis Comment CATH-CULT NOT IND MDM Medical Decision Making Medical Screen Exam Complete: Yes Emergency Medical Condition: Yes Medical Record Reviewed: Yes Interpretation(s) Twelve-lead EKG was reviewed by me. Normal sinus rhythm, left axis deviation, interventricular conduction delay, poor R-wave progression. Heart rate of 60 bpm. Differential Diagnosis Spinal stenosis, cauda equina, general debility, electrolyte abnormality Narrative Course 2:42 PM blood test results of back and within acceptable limits. CT scan of her head is negative. Chest x-rays negative. CT lumbar spine shows multilevel moderate to severe spinal stenosis. The kyphoplasty is intact. The spinal stenosis is not new for the patient. Awaiting for the UA. Patient has previous history of DVT many years ago and given the asymmetrical leg swelling I have ordered an ultrasound to rule out DVT. Awaiting for the test to be done and resulted. 3:15 PM UA and ultrasound results are back and within normal limits. I will discharge her home. I've asked the nurse to ambulate the patient the help of a walker. Procedures EKG Prior to Arrival: No Diagnosis Primary Impression: Generalized weakness Additional Impression: Spinal stenosis at L4-L5 level Referrals: Primary Care Physician 2 days Additional Instructions: Please return to the ER if the condition worsens or any other new concerns. Otherwise follow-up with your primary care next couple days. If ambulation has been an issue and progressively worsening your primary care should look into a higher level of care for you like a rehabilitation facility or assisted care living depending on which when you qualify for. Disposition: 01 DISCHARGE HOME Condition: Stable Pop Simental MD Feb 27, 2017 13:00
[2017-02-27] MEDS ORDERED: SODIUM CHLORIDE 0.9% FLUSH 10 ML FLUSH IVF PRN (13:15)
--- NOTE | 2017-02-27 13:31 | RADRPT ---
EXAM DATE/TIME: 02/27/2017 13:11 [facility] COMPARISON: CHEST SINGLE AP, September 02, 2015, 10:33. INDICATIONS : Weakness, possible cva MEDICAL HISTORY : 3 strokes SURGICAL HISTORY : None. ENCOUNTER: Initial ACUITY: 1 day PAIN SCORE: 0/10 LOCATION: Bilateral chest FINDINGS: Portable AP view of the chest demonstrates a normal-sized cardiac silhouette. Lungs are underinflated with mild opacity at the bases. No effusion or pneumothorax is identified. Bones and soft tissues de monstrate no acute finding. CONCLUSION: Underinflation with atelectasis or mild consolidation at the bases. Atelectasis is favored. No other acute finding is identified. Abel Nava MD on February 27, 2017 at 13:29 Board Certified Radiologist. This report was verified electronically.
[2017-02-27 13:47] LABS: AUTOMATED NEUTROPHIL # 4.2 TH/MM3 (1.8-7.7); BASOPHIL # 0.1 TH/MM3 (0-0.2); BASOPHIL % 0.8 % (0.0-2.0); EOSINOPHIL # 0.5 TH/MM3 (0-0.4); EOSINOPHIL % 7.9 % (0.0-4.0); HEMATOCRIT 39.5 % (35.0-46.0); HEMO FLAGS DIFF FINAL; LYMPH % 18.9 % (9.0-44.0); LYMPHOCYTE # 1.2 TH/MM3 (1.0-4.8); MEAN CELL VOLUME 97.8 FL (80.0-100.0); MEAN CORPUSCULAR HEMOGLOBIN 32.3 PG (27.0-34.0); MONO % 8.1 % (0.0-8.0); NEUT % 64.3 % (16.0-70.0); PLATELET COUNT 223 TH/MM3 (150-450); RED BLOOD COUNT 4.04 MIL/MM3 (4.00-5.30); RED CELL DISTRIBUTION WIDTH 13.9 % (11.6-17.2); WHITE BLOOD COUNT 6.5 TH/MM3 (4.0-11.0)
[2017-02-27 13:54] LABS: INTERNATIONAL NORMALIZED RATIO 0.9 RATIO
--- NOTE | 2017-02-27 14:01 | RADRPT ---
EXAM DATE/TIME: 02/27/2017 13:32 [facility] COMPARISON: MRI BRAIN W/O CONTRAST, January 27, 2017, 21:13. CT BRAIN W/O CONTRAST, January 27, 2017, 17:25. INDICATIONS : Weakness in legs ,fall today RADIATION DOSE: 56.35 CTDIvol (mGy) MEDICAL HISTORY : Cerebrovascular disease. Cardiovascular disease Hypertension.Diabetes SURGICAL HISTORY : None. ENCOUNTER: Initial ACUITY: 1 day PAIN SCALE: 6/10 LOCATION: cranial TECHNIQUE: Multiple contiguous axial images were obtained of the head. Using automated exposure control and adj ustment of the mA and/or kV according to patient size, radiation dose was kept as low as reasonably a chievable to obtain optimal diagnostic quality images. DICOM format image data is available electro nically for review and comparison. FINDINGS: CEREBRUM: The examination demonstrates older subcortical infarct involving the high right parietal cortices and left basal ganglia. These are stable compared to previous exam. The ventricles are normal in size an d configuration. There is no acute intracranial hemorrhage. No abnormal extra-axial fluid collections are seen. POSTERIOR FOSSA: The cerebellum and brainstem are intact. The 4th ventricle is midline. The cerebellopontine angle i s unremarkable. EXTRACRANIAL: The visualized portion of the orbits is intact. SKULL: The calvaria is intact. No evidence of skull fracture. CONCLUSION: 1. Old areas of cortical infarct in the high right cortices and left basal ganglia. Stable compared t o previous dated 01/27/17. Philipp Fernando MD on February 27, 2017 at 13:57 Board Certified Radiologist. This report was verified electronically.
[2017-02-27 14:07] LABS: BICARBONATE 28.6 MEQ/L (21.0-32.0); POTASSIUM 3.6 MEQ/L (3.5-5.1)
--- NOTE | 2017-02-27 14:34 | RADRPT ---
EXAM DATE/TIME: 02/27/2017 13:39 [facility] COMPARISON: SPINE LUMBAR LTD (AP & LAT), December 16, 2016, 12:40. CT BRAIN W/O CONTRAST, February 27, 2017, 13:32. INDICATIONS : Weakness in legs,fall today RADIATION DOSE: 57.81 CTDIvol (mGy) MEDICAL HISTORY : Cerebrovascular disease. Cardiovascular disease Hypertension.Diabetes SURGICAL HISTORY : None. ENCOUNTER: Initial ACUITY: 1 day PAIN SCALE: 6/10 LOCATION: Lumbar TECHNIQUE: Volumetric scanning of the lumbar spine was performed. Multiplanar reconstructions in the sagittal, coronal and oblique axial planes were performed. Using automated exposure control and adjustment of the mA and/or kV according to patient size, radiation dose was kept as low as reasonably achievable t o obtain optimal diagnostic quality images. DICOM format image data is available electronically for review and comparison. FINDINGS: Sagittal and coronal reformats demonstrate previous kyphoplasty at the L4 level. There are degenerati ve changes throughout the lumbar spine. The overall alignment is adequate. The paraspinous soft tissues demonstrate a gallstone within the gallbladder but are otherwise unremar kable. T12-L1: The thecal sac has a normal diameter. No evidence of disc bulge or protrusion. The neural foramina are patent bilaterally. L1-L2: The thecal sac has a normal diameter. No evidence of disc bulge or protrusion. The neural foramina are patent bilaterally. L2-L3: There is a degenerated disc with a broad-based disc bulge. This effaces the ventral thecal sac. There is mild facet arthritis bilaterally. The residual thecal space and foramina are adequate. L3-L4: There is a degenerated disc with a broad-based disc bulge and diffuse osteophytic ridging. There is m oderate facet arthritis bilaterally. These combined and result in at least a moderate degree of spina l stenosis at this level. L4-L5: There is a degenerated disc with a broad-based disc bulge. There is severe facet arthritis bilaterall y. There is degenerative facet and ligamentous hypertrophy. These changes combine to result in a mode rate to severe spinal stenosis at this level. L5-S1: There is a hemangioma in the L5 vertebral body. There is minimal disc bulge. The thecal space and for xiao are adequate. There is mild facet arthritis bilaterally. CONCLUSION: 1. Spinal stenosis at L3/4 and L4/5. This is described in detail above. 2. Previous kyphoplasty at L4. 3. Hemangioma in the L5 vertebral body. 4. No acute compression fracture identified. 1. Philipp Fernando MD on February 27, 2017 at 14:30 Board Certified Radiologist. This report was verified electronically.
[2017-02-27 14:49] LABS: BLOOD, URINE NEG (NEG); GLUCOSE,URINE NEG (NEG); HYALINE CAST, URINE 3 /lpf (RARE); KETONE, URINE NEG (NEG); MUCUS URINE FEW /lpf (OCC); NITRITE,URINE NEG (NEG); SQUAMOUS EPITHELIAL CELL URINE 1 /hpf (0-5); URINE COLOR YELLOW (YELLW/STRAW)
[2017-02-27 14:50] LABS: COMMENT (UR) CATH-CULT NOT IND; CULTURE IF INDICATED CATH CULTURE NOT IND
--- NOTE | 2017-02-27 15:03 | RADRPT ---
EXAM DATE/TIME: 02/27/2017 14:12 [facility] COMPARISON: No previous studies available for comparison. INDICATIONS : Left leg pain. MEDICAL HISTORY : Hypertension. Hypercholesterolemia. Gastroesophageal reflux disease. Stoke. left sided deficits. N europathy. Ulcer. Arthritis. Diabetes. Kidney stones. SURGICAL HISTORY : Bladder surgery. Lump removed from neck. ENCOUNTER: Initial ACUITY: 1 day PAIN SCORE: 2/10 LOCATION: Left leg. TECHNIQUE: Venous ultrasound of the leg was performed from the inguinal ligament to the proximal calf. Real-jairo e, color Doppler and spectral tracing, compression and augmentation techniques were used. FINDINGS: There is normal compressibility of the deep venous system from the inguinal region to the proximal ca lf. No echogenic clot is seen in the lumen of the common femoral, femoral, popliteal, and posterior tibial veins. There is a normal response of the venous system to proximal and distal augmentation an d respiration. CONCLUSION: No DVT in left leg. Kobi Murphy MD on February 27, 2017 at 15:00 Board Certified Radiologist. This report was verified electronically.
[2017-02-27 16:12] VITALS: BP 141/79
--- NOTE | 2017-03-01 07:52 | EKG ---
Date Performed: 02/27/2017 Time Performed: 13:29:54 PTAGE: 76 years EKG: Sinus rhythm LEFT AXIS DEVIATION POOR R WAVE PROGRESSION ACROSS PRECORDIUM Compared to prior tracing no significa nt change ABNORMAL ECG PREVIOUS TRACING : 01/27/2017 16.24 DOCTOR: JuanL uis Bowles Interpretating Date/Time 03/01/2017 07:51:43
== END 2017-02-27 16:23 | disposition home or self-care (01) ==
LOC: NEPC 10:22
DX: R53.1 Weakness (principal); M48.061 Spinal stenosis, lumbar region without neurogenic claudication; Z98.890 Other specified postprocedural states; M62.81 Muscle weakness (generalized); R22.43 Localized swelling, mass and lump, lower limb, bilateral; R94.31 Abnormal electrocardiogram [ECG] [EKG]; E11.9 Type 2 diabetes mellitus without complications; I10 Essential (primary) hypertension; E78.00 Pure hypercholesterolemia, unspecified; G47.30 Sleep apnea, unspecified; Z79.01 Long term (current) use of anticoagulants; Z79.84 Long term (current) use of oral hypoglycemic drugs; Z86.718 Personal history of other venous thrombosis and embolism; Z87.39 Personal history of other diseases of the musculoskeletal system and connective tissue; Z86.59 Personal history of other mental and behavioral disorders; Z86.79 Personal history of other diseases of the circulatory system; Z87.19 Personal history of other diseases of the digestive system; Z87.448 Personal history of other diseases of urinary system; Z86.69 Personal history of other diseases of the nervous system and sense organs
CPT/HCPCS: 70450; 71010; 72131; 80048; 81001; 82550; 84484; 85025; 85610; 93005; 93971; 99285

== ENCOUNTER 2017-03-28 15:20 | Emergency (ER) | payer OTHER ==
[~2017-03-28 15:20] MED LIST changes: +ASPI-516 CHEW; -ASPI81CH CHEW; -ATOR1TAB18 PO; +ATOR80TA45 PO; -OMEP20TA PO; +OMEP20TA93 PO; -OXYB5TAB10 PO; +OXYB5TAB8 PO
[2017-03-28 17:09] LABS: AUTOMATED NEUTROPHIL # 4.1 TH/MM3 (1.8-7.7); BASOPHIL % 0.6 % (0.0-2.0); EOSINOPHIL % 14.7 % (0.0-4.0); HEMATOCRIT 38.5 % (35.0-46.0); HEMO FLAGS DIFF FINAL; LYMPH % 17.6 % (9.0-44.0); LYMPHOCYTE # 1.2 TH/MM3 (1.0-4.8); MEAN CELL VOLUME 98.1 FL (80.0-100.0); MEAN CORPUSCULAR HEMOGLOBIN 32.2 PG (27.0-34.0); MEAN CORPUSCULAR HGB CONC 32.8 % (32.0-36.0); MONO % 8.2 % (0.0-8.0); NEUT % 58.9 % (16.0-70.0); PLATELET COUNT 242 TH/MM3 (150-450); RED BLOOD COUNT 3.93 MIL/MM3 (4.00-5.30); RED CELL DISTRIBUTION WIDTH 14.1 % (11.6-17.2)
[2017-03-28 17:19] LABS: ALT (GPT) 25 U/L (10-53)
[2017-03-28 17:21] LABS: ALKALINE PHOSPHATASE 79 U/L (45-117); TOTAL BILIRUBIN ADULT 0.3 MG/DL (0.2-1.0)
[2017-03-28 17:22] LABS: ANION GAP 9 MEQ/L (5-15); AST (GOT) 19 U/L (15-37); BICARBONATE 27.4 MEQ/L (21.0-32.0); BLOOD UREA NITROGEN 26 MG/DL (7-18); CHLORIDE 103 MEQ/L (98-107); GLOMERULAR FILTRATION RATE 46 ML/MIN (>89); POTASSIUM 3.9 MEQ/L (3.5-5.1); SODIUM (NA) 139 MEQ/L (136-145)
[2017-03-28 17:23] LABS: BLOOD, URINE NEG (NEG); GLUCOSE,URINE TRACE mg/dL (NEG); KETONE, URINE NEG (NEG); NITRITE,URINE NEG (NEG); PH, URINE 5.5 (5.0-8.5); SQUAMOUS EPITHELIAL CELL URINE 1 /hpf (0-5); URINE COLOR YELLOW (YELLW/STRAW)
[2017-03-28 17:30] LABS: COMMENT (UR) CULT NOT INDICATED; CULTURE IF INDICATED CULT NOT INDICATED
[2017-03-28 17:54] LABS: APTT (PATIENT) 23.2 SEC (24.3-30.1); INTERNATIONAL NORMALIZED RATIO 0.9 RATIO
[2017-03-28 19:02] VITALS: BP 166/77; PULSE 69; RESP 18; O2SAT 97
[2017-03-28] MEDS ORDERED: INSU100V3 SQ ×2 (19:15)
--- NOTE | 2017-03-28 19:16 | PD ---
HPI Chief Complaint: Abdominal Pain Time Seen by Provider: 19:15 Travel History International Travel<30 days: No Contact w/Intl Traveler<30days: No Traveled to known affect area: No History of Present Illness HPI The patient is 76 year old female who presents to the [facility] emergency department with a history of abdominal pain that began 3 weeks ago. It sometimes sharp in character but constantly aching. She reports that she does have a history of chronic constipation. She last moved her bowels this AM. The stool is hard in character. She reports that she takes an [id number] laxative with no improvement. Her last colonoscopy 2-3 years ago. Eating does not affect her abdominal pain. There are no alleviating factors. She fell and developed an [id number] fx s/p vertebral plasty. She did not under physical therapy. She uses a walker and a wheelchair. She had a stroke with residual left sided weakness a year and 1/2 ago. She is going to the gym 2 x per week- using the elliptical machine. Otherwise on review of systems, the patient denies any recent fevers, neck pain, chest pain, shortness of breath, vomiting, diarrhea, dysuria, urinary frequency, or urinary urgency or neurologic symptoms. She has nocturia. 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, compression fall, DM, HTN, hyperlipidemia , and chronic constipation Hx Anticoagulant Therapy: Yes (plavix and aspirin 81mg) Arthritis: Yes (bilateral hands) Asthma: No Autoimmune Disease: No Anxiety: Yes Depression: Yes Heart Rhythm Problems: No Cancer: No Cardiovascular Problems: Yes (HTN) High Cholesterol: Yes Chemotherapy: No Chest Pain: No Congestive Heart Failure: No COPD: No Cerebrovascular Accident: Yes (STROKE L SIDE WEAKNESS) Diabetes: Yes Patient Takes Glucophage: Yes Diminished Hearing: No Endocrine: Yes (DM) Gastrointestinal Disorders: Yes (GERD) GERD: Yes Genitourinary: Yes Headaches: Yes (allergies with sinus headaches often) Hepatitis: No Heparin Induced Thrombocytopen: No Hypertension: Yes Immune Disorder: No Implanted Vascular Access Dvce: No Kidney Stones: Yes (HX OF) Musculoskeletal: Yes Neurologic: Yes (Left side stroke in 2009 with mild right sided deficits) Psychiatric: Yes Reproductive: No Respiratory: Yes Migraines: No Radiation Therapy: No Renal Failure: No Seizures: No Sickle Cell Disease: No Sleep Apnea: Yes Thyroid Disease: No Ulcer: Yes (hx stomach ulcers) Tetanus Vaccination: > 5 Years ?: Not Menopausal: Yes Past Surgical History Narrative Surgical The patient's past surgical history is significant for bladder surgery, kyphoplasty, benign lump removed from throat, eye surgery. Abdominal Surgery: No AICD: No Arteriovenous Shunt: No Cardiac Surgery: No Ear Surgery: No Endocrine Surgery: Yes (Diabetes) Eye Surgery: Yes (RIGHT CATARACT SX) Genitourinary Surgery: Yes (BLADDER REATTATCHMENT) Gynecologic Surgery: No Insulin Pump: No Joint Replacement: No Neurologic Surgery: Yes (spinal sx L4 for compression fx) Oral Surgery: No Pacemaker: No Thoracic Surgery: No Other Surgery: Yes (LUMP TAKEN OFF OF NECK) Social History Alcohol Use: No Tobacco Use: No Substance Use: No Allergies-Medications (Allergen,Severity, Reaction): Coded Allergies: lisinopril (Unverified Allergy, Severe, 03/28/17) sulfamethoxazole (Unverified Allergy, Severe, 03/28/17) trimethoprim (Unverified Allergy, Severe, 03/28/17) valsartan (Unverified Allergy, Severe, 03/28/17) Reported Meds & Prescriptions Reported Meds & Active Scripts Active Lactulose Liq (Lactulose) 10 Gm/15 Ml Soln 15 Ml PO QHS PRN 5 Days Amitiza (Lubiprostone) 8 Mcg Cap 24 Mcg PO BID 14 Days Naprosyn (Naproxen) 500 Mg Tab 500 Mg PO Q12HR Catapres (Clonidine) 0.1 Mg Tab 0.1 Mg PO Q6H PRN Reported Humulin N Inj (Insulin Human NPH) 1,000 Unit/10 Ml Vial 30 Units SQ HS Humulin N Inj (Insulin Human NPH) 1,000 Unit/10 Ml Vial 35 Units SQ DAILY Meclizine (Meclizine HCl) 25 Mg Tab 25 Mg PO DIRECTED PRN Hydrocodone-Acetaminophen 7.5-325 mg Tab 1 Tab PO Q4H PRN Aspirin 81 Mg Chew 81 Mg CHEW HS Ropinirole 0.25 Mg Tab 0.25 Mg PO HS Gabapentin 300 Mg Cap 300 Mg PO BID Ditropan (Oxybutynin Chloride) 5 Mg Tab 5 Mg PO Q12HR Metformin (Metformin HCl) 500 Mg Tab 500 Mg PO BIDPC With meals Cetirizine (Cetirizine HCl) 10 Mg Tab 10 Mg PO DAILY Laxative (Sennosides) 25 Mg Tab 25 Mg PO HS Omeprazole 20 Mg Tab 20 Mg PO DAILY Atorvastatin (Atorvastatin Calcium) 80 Mg Tab 80 Mg PO HS Plavix (Clopidogrel Bisulfate) 75 Mg Tab 75 Mg PO DAILY Metoprolol Tartrate 25 Mg Tab 12.5 Mg PO BID Multiple Vitamin 1 Tab 1 Tab PO DAILY Sertraline (Sertraline HCl) 25 Mg Tab 25 Mg PO DAILY Review of Systems Except as stated in HPI: all other systems reviewed are Neg General / Constitutional: No: Fever Eyes: No: Visual changes HENT: No: Headaches Cardiovascular: No: Chest Pain or Discomfort Respiratory: No: Shortness of Breath Gastrointestinal: Positive: Abdominal Pain, Constipation, No: Nausea, Vomiting , Diarrhea, Changes in Bowel Habits, Indigestion, Loss of Appetite Genitourinary: No: Dysuria Musculoskeletal: No: Pain Skin: No Rash Neurologic: No: Weakness Psychiatric: No: Depression Endocrine: No: Polydipsia Hematologic/Lymphatic: No: Easy Bruising Physical Exam Narrative General: The patient is a well-developed well-nourished female in no acute distress. Head and Neck exam: Head is normocephalic atraumatic. Eyes: EOMI, pupils are equal round and reactive to light. Nose: Midline septum with pink mucous membranes Mouth: Dentition unremarkable. Moist mucus membranes. Posterior oropharynx is not erythematous. No tonsillar hypertrophy. Uvula midline. Airway patent. Neck: No palpable lymphadenopathy. No nuchal rigidity. No thyromegaly. Cardiovascular: Regular rate and rhythm without murmurs, gallops, or rubs. Lungs: Clear to auscultation bilaterally. No wheezes, rhonchi, or rales. Abdomen: Soft, with tenderness on palpation in left lower quadrant of the abdomen as well as a suprapubic area, no other tenderness on palpation of the other quadrants of the abdomen. No tenderness on palpation of McBurney's point. No guarding, rebound, or rigidity. Normal bowel sounds are audible. Negative Zuleta's sign. No rashes noted on the patient's abdomen or back to suggest shingles. Extremities: No clubbing, cyanosis, or edema. 2+ pulses in all 4 extremities. No calf tenderness on palpation. Back: No spinous process tenderness to palpation. No costovertebral angle tenderness to palpation. Neurologic Exam: The patient has mild residual weakness of the left upper extremity related to a prior stroke. The patient has no other focal findings. No facial asymmetry. Skin Exam: No rash noted. Intact skin that is warm and dry. Data Data Last Documented VS Vital Signs Date Time Temp Pulse Resp B/P (MAP) Pulse Ox O2 Delivery O2 Flow Rate FiO2 03/28/17 19:02 69 18 166/77 (106) 97 Room Air Orders Orders Complete Blood Count With Diff (03/28/17 15:46) Comprehensive Metabolic Panel (03/28/17 15:46) Lipase (03/28/17 15:46) Prothrombin Time / Inr (Pt) (03/28/17 15:46) Act Partial Throm Time (Ptt) (03/28/17 15:46) Urinalysis - C+S If Indicated (03/28/17 15:46) Electrocardiogram (03/28/17 15:46) Sodium Chlorid 0.9% 500 Ml Inj (Ns 500 M (03/28/17 19:45) Ondansetron Inj (Zofran Inj) (03/28/17 19:45) Morphine Inj (Morphine Inj) (03/28/17 19:45) Ct Abd/Pel W Iv Contrast(Rout) (03/28/17 19:35) Iohexol 350 Inj (Omnipaque 350 Inj) (03/28/17 20:12) Ed Discharge Order (03/28/17 22:07) Labs Laboratory Tests Test 03/28/17 16:15 03/28/17 16:35 White Blood Count 7.0 TH/MM3 Red Blood Count 3.93 MIL/MM3 Hemoglobin 12.6 GM/DL Hematocrit 38.5 % Mean Corpuscular Volume 98.1 FL Mean Corpuscular Hemoglobin 32.2 PG Mean Corpuscular Hemoglobin Concent 32.8 % Red Cell Distribution Width 14.1 % Platelet Count 242 TH/MM3 Mean Platelet Volume 8.4 FL Neutrophils (%) (Auto) 58.9 % Lymphocytes (%) (Auto) 17.6 % Monocytes (%) (Auto) 8.2 % Eosinophils (%) (Auto) 14.7 % Basophils (%) (Auto) 0.6 % Neutrophils # (Auto) 4.1 TH/MM3 Lymphocytes # (Auto) 1.2 TH/MM3 Monocytes # (Auto) 0.6 TH/MM3 Eosinophils # (Auto) 1.0 TH/MM3 Basophils # (Auto) 0.0 TH/MM3 CBC Comment DIFF FINAL Differential Comment Prothrombin Time 10.0 SEC Prothromb Time International Ratio 0.9 RATIO Activated Partial Thromboplast Time 23.2 SEC Blood Urea Nitrogen 26 MG/DL Creatinine 1.16 MG/DL Random Glucose 216 MG/DL Total Protein 6.8 GM/DL Albumin 3.4 GM/DL Calcium Level 8.7 MG/DL Alkaline Phosphatase 79 U/L Aspartate Amino Transf (AST/SGOT) 19 U/L Alanine Aminotransferase (ALT/SGPT) 25 U/L Total Bilirubin 0.3 MG/DL Sodium Level 139 MEQ/L Potassium Level 3.9 MEQ/L Chloride Level 103 MEQ/L Carbon Dioxide Level 27.4 MEQ/L Anion Gap 9 MEQ/L Estimat Glomerular Filtration Rate 46 ML/MIN Lipase 81 U/L Urine Color YELLOW Urine Turbidity CLEAR Urine pH 5.5 Urine Specific [place] 1.022 Urine Protein 30 mg/dL Urine Glucose (UA) TRACE mg/dL Urine Ketones NEG mg/dL Urine Occult Blood NEG Urine Nitrite NEG Urine Bilirubin NEG Urine Urobilinogen LESS THAN 2.0 MG/DL Urine Leukocyte Esterase NEG Urine RBC LESS THAN 1 /hpf Urine WBC 3 /hpf Urine Squamous Epithelial Cells 1 /hpf Microscopic Urinalysis Comment CULT NOT INDICATED MDM Medical Decision Making Medical Screen Exam Complete: Yes Emergency Medical Condition: Yes Medical Record Reviewed: Yes Interpretation(s) Last Impressions Abdomen/Pelvis CT 03/28/171934 Signed Impressions: Service Date/Time: Tuesday, March 28, 2017 20:03 - CONCLUSION: 1. Moderate stool in the colon especially the rectum. 2. Gallstones 3. Suspected scarring in the lower lungs. 4. Status post vertebroplasty at L4. Abel Sargent MD Differential Diagnosis Last Impressions Abdomen/Pelvis CT 03/28/171934 Signed Impressions: Service Date/Time: Tuesday, March 28, 2017 20:03 - CONCLUSION: 1. Moderate stool in the colon especially the rectum. 2. Gallstones 3. Suspected scarring in the lower lungs. 4. Status post vertebroplasty at L4. Abel Sargent MD Narrative Course During the course of the patients emergency department visit, the patients history, examination, and differential diagnosis were reviewed with the patient. The patient was placed on a general car supervisor yard with oximetry and frequent blood pressure monitoring. The patient had IV access obtained and blood work sent for analysis. The patient was initially provided normal saline a 500 mL bolus 1, morphine for pain, Zofran for nausea. The patients laboratory studies were reviewed and remarkable for a white count of 7, hemoglobin 12.6, platelets 242 with 8.2 monocytes, eosinophils 14.7. CMP is remarkable for a BUN of 26, creatinine 1.16, glucose 216, lipase 81, PT 10, PTT 23.2. Urinalysis showed no acute abnormality. Radiology studies were reviewed and remarkable for a CT scan of the abdomen and pelvis that shows moderate stool in the colon especially in the rectum, gallstones, suspected scarring in the lower lungs, status post vertebral plasty at L4. I suspect that the patient's symptoms are related to constipation. She was instructed on increasing the fiber in her diet, ingesting 8 glasses of water daily. She was encouraged to follow up with her primary care physician for referral for physical therapy for her back pain. The patient will be given a prescription for Amitiza as she is on hydrocodone, and lactulose to be taken over the next few days to assist with constipation. The patient is resting comfortably and feels better, is alert and in no distress. The patients results and examination findings were discussed with the patient. The repeat examination is unremarkable and benign. The history, exam, diagnostic testing, and current condition do not suggest any significant pathology to warrant further testing, continued ED treatment, admission, or surgical evaluation at this point. The vital signs have been stable. The patient does not have uncontrollable pain, intractable vomiting, or other significant symptoms. The patient's condition is stable and appropriate for discharge. The patient will pursue further outpatient evaluation with a primary care physician or other designated or consulting physician as indicated in the discharge instructions. The patient expressed understanding and was agreeable with this plan. Diagnosis Primary Impression: Abdominal pain Qualified Codes: R10.32 - Left lower quadrant pain Additional Impression: Constipation Qualified Codes: K59.03 - Drug induced constipation Referrals: Primary Care Physician 3 days Patient Instructions: Abdominal Pain (ED), Constipation (ED), General Instructions Additional Instructions: She was instructed on increasing the fiber in her diet by using Benefiber, ingesting 8 glasses of water daily. She was encouraged to follow up with her primary care physician for referral for physical therapy for her back pain. The patient will be given a prescription for Amitiza as she is on hydrocodone, and lactulose to be taken over the next few days to assist with constipation. Med/Other Pt SpecificInfo: Prescription(s) given Scripts Lactulose Liq (Lactulose Liq) 10 Gm/15 Ml Soln 15 ML PO qhs Y for CONSTIPATION for 5 Days, ML 0 Refills Prov: Isabella Pond MD 03/28/17 Lubiprostone (Amitiza) 8 Mcg Cap 24 MCG PO BID for 14 Days, #84 CAP Prov: Isabella Pond MD 03/28/17 Disposition: 01 DISCHARGE HOME Condition: Stable Isabella Pond MD Mar 28, 2017 19:16
[2017-03-28] MEDS ORDERED: MORPHINE SULFATE 4 MG/ML INJ IV PUSH ONE (19:45)
[2017-03-28] MEDS ORDERED: ONDANSETRON HCL 4 MG/2 ML VIAL IV PUSH ONE (19:45)
[2017-03-28] MEDS ORDERED: SODIUM CHLORID 0.9% 500 ML INJ 500 ML IV ONE (19:45)
[2017-03-28] MEDS ORDERED: IOHEXOL 350 MG/ML 10 ML VIAL (for RAD DIAG) IVCONTRAST ONE (20:12)
--- NOTE | 2017-03-28 21:31 | EKG ---
Date Performed: 03/28/2017 Time Performed: 16:24:08 PTAGE: 76 years EKG: Sinus rhythm LAFB INTRAVENTRICULAR CONDUCTION DELAY DELAYED R WAVE PROGRESSION ABNORMAL ECG PREVIOUS TRACING : 03/28/2017 16.23 Compared to prior tracing no significant change DOCTOR: Jennifer Wright Interpretating Date/Time 03/28/2017 21:30:11
--- NOTE | 2017-03-28 21:38 | RADRPT ---
EXAM DATE/TIME: 03/28/2017 20:03 [facility] COMPARISON: CHEST SINGLE AP, February 27, 2017, 13:11. INDICATIONS : Lower abdominal pain and constipation. IV CONTRAST: 100 cc Omnipaque 350 (iohexol) IV ORAL CONTRAST: No oral contrast ingested. RADIATION DOSE: 16.81 CTDIvol (mGy) MEDICAL HISTORY : Hypertension. Gastroesophageal reflux disease. Renal calculi.Diabetes. CVA. SURGICAL HISTORY : Bladder surgery. ENCOUNTER: Initial ACUITY: 3 weeks PAIN SCALE: 7/10 LOCATION: Bilateral lower quadrant TECHNIQUE: Volumetric scanning of the abdomen and pelvis was performed. Using automated exposure control and ad justment of the mA and/or kV according to patient size, radiation dose was kept as low as reasonably achievable to obtain optimal diagnostic quality images. DICOM format image data is available electro nically for review and comparison. FINDINGS: LOWER LUNGS: There is irregular linear density at the right middle lobe, left lingula, posterior medial right lowe r lobe, and lateral left lower lobe. These areas most closely resemble scarring. LIVER: Homogeneous density without lesion. There is no dilation of the biliary tree. Calcified gallstones a re seen in a nondistended gallbladder. SPLEEN: There is a small 0.6 cm hypodensity seen in the spleen. This is nonspecific. The most common mass to have this appearance would be a hemangioma. PANCREAS: Within normal limits. KIDNEYS: Normal in size and shape. There is no mass, stone or hydronephrosis. ADRENAL GLANDS: Within normal limits. VASCULAR: There is no aortic aneurysm. BOWEL/MESENTERY: The stomach, small bowel, and colon demonstrate no acute abnormality. There is no free intraperitone al air or fluid. There is a moderate amount stool in the colon especially in the rectum. ABDOMINAL WALL: There is a minimal umbilical hernia containing mesenteric fat. RETROPERITONEUM: There is no lymphadenopathy. BLADDER: No wall thickening or mass. REPRODUCTIVE: Calcifications are seen in the uterus likely from leiomyomas. INGUINAL: There is no lymphadenopathy or hernia. MUSCULOSKELETAL: The patient is status post vertebroplasty at L4. CONCLUSION: 1. Moderate stool in the colon especially the rectum. 2. Gallstones 3. Suspected scarring in the lower lungs. 4. Status post vertebroplasty at L4. Abel Sargent MD on March 28, 2017 at 21:32 Board Certified Radiologist. This report was verified electronically.
[2017-03-28] MEDS ORDERED: AMIT8CAP6 PO (22:04)
[2017-03-28] MEDS ORDERED: LACT10SO PO (22:10)
== END 2017-03-28 22:51 | disposition home or self-care (01) ==
LOC: NEPE 15:20
DX: K59.09 Other constipation (principal); I10 Essential (primary) hypertension; E11.9 Type 2 diabetes mellitus without complications; I69.354 Hemiplegia and hemiparesis following cerebral infarction affecting left non-dominant side; F41.9 Anxiety disorder, unspecified; F32.9 Major depressive disorder, single episode, unspecified; Z79.84 Long term (current) use of oral hypoglycemic drugs; Z87.442 Personal history of urinary calculi
CPT/HCPCS: 74177; 80053; 81001; 83690; 85025; 85610; 85730; 93005; 96361; 96374; 96375; 99285; J2270; J2405; J7040; Q9967